=== PATIENT | male | born 1935 ===

== ENCOUNTER 2018-01-20 09:45 | Inpatient (IN) | payer BC, MEDICARE ==
[2018-01-20] MEDS ORDERED: Sodium Chloride 0.9% 1,000 ML IV STA (10:37)
[2018-01-20 11:07] LABS: BASO # 0.1 K/uL (0.0-0.2); BASO % 0.8 % (0.0-2.0); EOS # 0.4 K/uL (0.0-0.7); EOS % 5.1 % (0.0-4.0); HEMOGLOBIN 14.7 g/dL (12.0-18.0); LYMPH # 1.9 K/uL (1.0-4.3); LYMPH % 22.6 % (20.0-40.0); MEAN CELL VOLUME 96.9 fl (80.0-94.0); MEAN CORPUSCULAR HGB CONC 34.1 g/dL (33.0-37.0); MONO # 0.6 K/uL (0.0-0.8); MONO % 7.4 % (0.0-10.0); NEUT # 5.3 K/uL (1.8-7.0); NEUT % 64.1 % (50.0-75.0); NRBC % 0.1 % (0.0-0.0); RBC 4.46 Mil/uL (4.40-5.90); WHITE BLOOD COUNT 8.3 K/uL (4.8-10.8)
--- NOTE | 2018-01-20 11:09 | ED PDOC ---
Syncope/Near Syncope/Dizziness Time Seen by Provider: 01/20/18 10:08 Chief Complaint (Nursing): Dizziness/Lightheaded History Per: Patient (This is 82 yo male is here because of dizziness that has been ongoing for the past 2 years. He is also here because of abdominal pain for 2 months. He has been coughing a little. He says that Dr. Sullivan told him to come to the ER if he is not feeling well. He is no vomiting. there is no h/o fever or diarrhea. he is no short of breath.), Family History/Exam Limitations: no limitations Past Medical History Reviewed: Historical Data Vital Signs: Last Vital Signs Temp 98.4 F 01/20/18 09:57 Pulse 98 H 01/20/18 09:57 Resp 20 01/20/18 09:57 BP 126/54 L 01/20/18 09:57 Pulse Ox 96 01/20/18 09:57 - Medical History PMH: Diabetes, HTN - Surgical History Other surgeries: vascular surgery of the right LE - Family History Family History: States: No Known Family Hx - Living Arrangements Living Arrangements: With Family - Social History Current smoker - smoking cessation education provided: Yes Alcohol: Occasional Drugs: Denies - Home Medications Home Medications: Ambulatory Orders Medication Instructions Recorded Cilostazol [Pletal] 100 mg PO DAILY 01/20/18 Glimepiride [Amaryl] 4 mg PO BID 01/20/18 Meclizine HCl [Dramamine Less 25 mg PO DAILY 01/20/18 Drowsy] Pentoxifylline 400 mg PO DAILY 01/20/18 SITagliptin [Januvia] 50 mg PO DAILY 01/20/18 hydroCHLOROthiazide [Hydrodiuril] 25 mg PO DAILY 01/20/18 - Allergies Allergies/Adverse Reactions: Allergies Allergy/AdvReac Type Severity Reaction Status Date / Time No Known Allergies Allergy Verified 01/20/18 10:19 Review of Systems ROS Statement: Except As Marked, All Systems Reviewed And Found Negative Respiratory: Positive for: Cough Gastrointestinal: Positive for: Abdominal Pain. Negative for: Nausea, Vomiting , Diarrhea, Constipation Genitourinary Male: Negative for: Dysuria Physical Exam - Reviewed Nursing Documentation Reviewed: Yes Vital Signs Reviewed: Yes - Physical Exam Appears: Positive for: Well, Non-toxic, No Acute Distress Head Exam: Positive for: ATRAUMATIC, NORMAL INSPECTION, NORMOCEPHALIC Skin: Positive for: Normal Color, Warm, DRY Eye Exam: Positive for: EOMI, Normal appearance, PERRL ENT: Positive for: Normal ENT Inspection Neck: Positive for: Normal, Painless ROM Cardiovascular/Chest: Positive for: Regular Rate, Rhythm Respiratory: Positive for: CNT, Normal Breath Sounds Gastrointestinal/Abdominal: Positive for: Normal Exam, Soft Back: Positive for: Normal Inspection Extremity: Positive for: Normal ROM Neurologic/Psych: Positive for: Alert, Oriented - Laboratory Results Result Diagrams: 01/20/18 11:01 01/20/18 11:01 - ECG O2 Sat by Pulse Oximetry: 96 Medical Decision Making Medical Decision Making: case d/w Dr. Sullivan. US findings reviewed in detail along with his blood work. he is concerned about aneurysm as one of causes of abdominal pain. Will admit for abdominal pain and order CT scan and consultation with specialist. Disposition - Clinical Impression Clinical Impression: Dizziness, Abdominal pain, AAA (abdominal aortic aneurysm) - Patient ED Disposition Is Patient to be Admitted: Yes - Disposition Disposition: Transfer of Care Disposition Time: 12:30 Condition: FAIR Forms: [facility] (Slovak) - Pt Status Changed To: Hospital Disposition Of: Observation - POA Present On Arrival: None
[2018-01-20 11:17] LABS: ALB/GLOB RATIO 1.2 (1.0-2.1); ALBUMIN 3.9 g/dL (3.5-5.0); ALT/SGPT 28 U/L (21-72); AST/SGOT 18 U/L (17-59); BLOOD UREA NITROGEN 25 mg/dl (9-20); CALCIUM 9.1 mg/dL (8.4-10.2); GFR AFRICAN-AMERICAN > 60; GFR NON-AFRICAN AMERICAN 53; LIPASE 38 U/L (23-300)
[2018-01-20 12:02] LABS: URINE BILIRUBIN NEGATIVE (NEGATIVE); URINE CLARITY Clear (Clear); URINE COLOR LIGHT YELLOW (YELLOW); URINE GLUCOSE (UA) NEGATIVE (Normal)
[2018-01-20 12:03] LABS: URINE BLOOD TRACE (NEGATIVE); URINE LEUKOCYTE ESTERASE NEGATIVE Leu/uL (Negative); URINE PROTEIN 30 mg/dL (NEGATIVE); URINE UROBILINOGEN 0.2 mg/dL (0.2-1.0)
[2018-01-20 12:04] LABS: SQUAMOUS EPITHIAL 4 /hpf (0-5); URINE BACTERIA RARE (<OCC)
--- NOTE | 2018-01-20 12:17 | US ---
HISTORY: abdominal pain x 2 months, h/o aneurysm on CT COMPARISON: Correlations made to CT scan of the abdomen pelvis dated 03/08/2012. TECHNIQUE: Sonographic evaluation of the abdomen. FINDINGS: LIVER: Measures 15.1 cm. Normal echogenicity of the liver parenchyma. No mass. No intrahepatic bile duct dilatation. GALLBLADDER: Unremarkable. No gallstones. COMMON BILE DUCT: Measures 6 mm. No stones. No dilatation. PANCREAS: Unremarkable as visualized. No mass. No ductal dilatation. RIGHT KIDNEY: Measures 11.5 x 5.7 x 5.4cm. Midpole cyst measuring 3.0 x 2.7 x 3.0 cm. Normal echogenicity. No calculus, mass, or hydronephrosis. LEFT KIDNEY: Measures 9.8 x 5.2 x 5.4cm. Normal echogenicity. No calculus, mass, or hydronephrosis. SPLEEN: Normal in size and contour. No mass. AORTA: Aneurysmal dilatation in the midportion measuring 4.4 cm in maximal dimension. Contains intramural thrombus. IVC: Unremarkable. OTHER FINDINGS: None. IMPRESSION: Redemonstration of infrarenal abdominal aortic aneurysm now measuring up to 4.4 cm in maximal dimension. Intramural thrombus is noted along the right aspect of the aorta.
[2018-01-20] MEDS ORDERED: Iohexol 240 (50 ml) PO ONE (12:47)
--- NOTE | 2018-01-20 13:41 | RAD ---
HISTORY: long smoking hx, cough COMPARISON: Chest radiograph dated 09/07/2013. TECHNIQUE: Chest PA and lateral FINDINGS: LUNGS: Bibasilar fibrotic changes. No focal consolidation. PLEURA: No significant pleural effusion identified. No pneumothorax apparent. CARDIOVASCULAR: Atherosclerotic aortic calcifications. Cardiomediastinal still within normal limits. OSSEOUS STRUCTURES: Unchanged. VISUALIZED UPPER ABDOMEN: Normal. OTHER FINDINGS: None. IMPRESSION: Bibasilar fibrotic changes. No focal consolidation or pleural effusion.
--- NOTE | 2018-01-20 13:42 | RAD ---
HISTORY: abd pain x 2 months COMPARISON: Abdominal radiograph dated 05/07/2013. FINDINGS: BOWEL: Prominent amount of retained colonic stool. No obstruction. No free air. BONES: Degenerative changes. OTHER FINDINGS: Inferior vena cava filter redemonstrated. IMPRESSION: Prominent amount of retained colonic stool.
[2018-01-20] MEDS ORDERED: Iohexol 240 (50 ml) ONE (14:29)
[2018-01-20] MEDS ORDERED: Iohexol 300 100 ML IJ ONE (16:33)
[2018-01-20] MEDS ORDERED: Sodium Chloride 0.9% 100 ML ONE (16:33)
[2018-01-20] MEDS ORDERED: GlipiZIDE 10 mg SR Tab PO SCH (17:00)
--- NOTE | 2018-01-20 17:33 | CT ---
PROCEDURE: CT Chest, Abdomen and Pelvis with intravenous contrast HISTORY: Abdominal pain, h/o aneurysm confirmed by US COMPARISON: January 20, 2018. Abdominal aortic ultrasound documenting aneurysmal dilatation of the infrarenal aorta 4.4 cm. 03/08/2012 CT abdomen and pelvis. Aneurysmal dilatation of the infrarenal abdominal aorta was identified on the prior CT scan with orthogonal measurements 3.8 x 4.1 cm TECHNIQUE: IV dose administered: 90 cc Omnipaque 300 Radiation dose: Total exam DLP = 831.56 mGy-cm. This CT exam was performed using one or more of the following dose reduction techniques: Automated exposure control, adjustment of the mA and/or kV according to patient size, and/or use of iterative reconstruction technique. FINDINGS: CT CHEST WITH CONTRAST: LUNGS: Interstitial lung disease. Hyperinflation/ manifestations of COPD. Honeycombing pattern identified bilaterally. No suspicious pulmonary nodules or masses identified. No discrete infiltrates. MEDIASTINUM: Maximum diameter of ascending aorta 3.2 cm. Maximum diameter descending aorta 2.7 cm with thrombus formation. No evidence of aneurysm or dissection. LYMPH NODES: Unremarkable. PLEURA: Unremarkable. No pneumothorax. No pleural fluid. BONES: Multilevel degenerative changes primarily disc space narrowing and non marginal hyperostotic bone formation. OTHER FINDINGS: Small hiatal hernia. Moderate thickening of the distal esophagus suggests the possibility of esophagitis. Similar findings identified on the prior CT 03/08/[address] ABDOMEN AND PELVIS: LIVER: Unremarkable. No gross lesion or ductal dilatation. GALLBLADDER AND BILE DUCTS: Unremarkable. PANCREAS: Unremarkable. No gross lesion or ductal dilatation. SPLEEN: Unremarkable. ADRENALS: Unremarkable. No mass. KIDNEYS AND URETERS: Unremarkable. No hydronephrosis. No solid mass. Incidental finding(s): Simple cysts mid lower pole region right kidney 2.8 cm VASCULATURE: Aneurysmal dilatation of the infrarenal abdominal aorta. Maximum dimension 4.8 x 4.7 cm. Luminal diameter 2.8 x 2 cm. The abdominal aorta tapers to 1.8 cm at the bifurcation. The proximal iliac arteries measure 1.8 cm bilaterally. 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 IVC filter identified. BOWEL: Diverticulosis without an acute inflammatory component or other associated pathologic process. APPENDIX: Normal appendix. PERITONEUM: Unremarkable. No free fluid. No free air. LYMPH NODES: Unremarkable. No enlarged lymph nodes. BLADDER: Unremarkable. . REPRODUCTIVE: Unremarkable. BONES: No acute fracture. OTHER FINDINGS: None. IMPRESSION: Infrarenal abdominal aortic aneurysm measures 4.7 x 4.8 cm. Considerable thrombus identified. At a comparable level on the prior study from 03/08/2012 the infrarenal abdominal aorta measured 3.8 x 4.1 cm. Several caudal length of the aneurysmal component of the aorta 5.2 cm Additional benign and/or incidental findings described above.
[2018-01-20] MEDS: Sodium Chloride 0.9% 1,000 ML IV SCH (17:52)
--- NOTE | 2018-01-20 18:41 | CARD ---
APPROVED REPORT EKG Measurement Heart [id number] <Conclusion> Normal sinus rhythm Left axis deviation Abnormal ECG
[2018-01-21] MEDS: Sodium Chloride 0.9% 1,000 ML IV SCH ×2 (04:00→14:36)
[2018-01-21 06:28] LABS: BASO # 0.1 K/uL (0.0-0.2); BASO % 0.9 % (0.0-2.0); EOS # 0.4 K/uL (0.0-0.7); EOS % 6.7 % (0.0-4.0); HEMOGLOBIN 13.9 g/dL (12.0-18.0); LYMPH % 30.4 % (20.0-40.0); MEAN CORPUSCULAR HEMOGLOBIN 32.4 pg (27.0-31.0); MEAN CORPUSCULAR HGB CONC 33.4 g/dL (33.0-37.0); MEAN PLATELET VOLUME 8.6 fl (7.2-11.7); MONO # 0.5 K/uL (0.0-0.8); MONO % 8.5 % (0.0-10.0); NEUT # 3.4 K/uL (1.8-7.0); NEUT % 53.5 % (50.0-75.0); NRBC % 0.2 % (0.0-0.0); RBC 4.3 Mil/uL (4.40-5.90); RED CELL DISTRIBUTION WIDTH 13.6 % (11.5-14.5); WHITE BLOOD COUNT 6.4 K/uL (4.8-10.8)
[2018-01-21 06:38] LABS: ALB/GLOB RATIO 1.3 (1.0-2.1); ALBUMIN 3.5 g/dL (3.5-5.0); ALT/SGPT 26 U/L (21-72); AST/SGOT 14 U/L (17-59); BLOOD UREA NITROGEN 25 mg/dl (9-20); CALCIUM 8.8 mg/dL (8.4-10.2); GFR AFRICAN-AMERICAN > 60; GFR NON-AFRICAN AMERICAN 53; HDL CHOLESTEROL 33 MG/DL (30-70)
[2018-01-21 06:57] LABS: LDL CHOLESTEROL 99 mg/dL (0-129)
[2018-01-21] MEDS: Cilostazol 100 mg Tab UD PO SCH (08:57)
--- NOTE | 2018-01-21 10:43 | VASCLAB ---
STUDY DESCRIPTION: HISTORY: R/O PVD PRIORS: None. TECHNIQUE: Pulse volume recording waveforms and segmental pressures of bilateral lower extremities at multiple levels were obtained. Ankle Brachial Indices (ABIs) were calculated. Report prepared by Diamond Ugalde RDMS,ROSS,ESTEFANIA BARNETT RIGHT LOWER EXTREMITY: * Brachial artery: Pressure - 124 mmHg. * High thigh: Pressure - 137 mmHg: Ratio - 1.10: PVR waveform - Pulsatile * Low thigh: Pressure - mmHg: Ratio - PVR waveform: Pulsatile * Calf: Pressure - 115 mmHg: Ratio - 0.93 PVR waveform: Reduced * Posterior tibial Artery: Pressure - mmHg: Ratio - PVR waveform: None * Dorsalis pedis Artery: Pressure - 115 mmHg: Ratio - 0.93 PVR waveform: Reduced * Great toe: Pressure - 44 mmHg: Ratio - 0.35 PVR waveform: Reduced Ankle brachial index (JOSÉ MIGUEL): LEFT LOWER EXTREMITY: * Brachial artery: Pressure - mmHg. * High thigh: Pressure - 122 mmHg: Ratio - 0.98: PVR waveform - Pulsatile * Low thigh: Pressure - mmHg: Ratio - PVR waveform: Pulsatile * Calf: Pressure - 131 mmHg: Ratio - 1.06 PVR waveform: Pulsatile * Posterior tibial Artery: Pressure - 124 mmHg: Ratio - 1.0 PVR waveform: Pulsatile * Dorsalis pedis Artery: Pressure - 150 mmHg: Ratio - 1.21 PVR waveform: Pulsatile * Great toe: Pressure - 75 mmHg: Ratio - 0.60 PVR waveform: Pulsatile Ankle brachial index (JOSÉ MIGUEL): OTHER FINDINGS: IMPRESSION: Right: Normal ankle-brachial index. Abnormal waveform at the level of the toe may signify distal vessel disease. Left: Normal ankle-brachial index. Abnormal waveform the level of the toe may signify distal vessel disease.
--- NOTE | 2018-01-21 14:32 | CP.PCM.HP ---
History of Present Illness - History of Present Illness History of Present Illness: CC: Abdominal pain. 82 y/o M, Multiple chronic medical condition, including Hx of DVT, COPD, Right L /E vascular surgery, DMII. Pt came to ER [facility] [place] to be evaluated for abdominal pain, onset 2 month LACER AND TIER, with no relief. Pt c/o of moderate lower abdominal pain for 2 months, gradually increased from moderate to severe, more intensive at HS, awaking Pt from the last 2 weeks LACER AND TIER, no associated to n/v/d, but associated to mid back pain and chronic claudication of the RLE walking 1 to 2 blocks. Worsening symptoms: C/o of chronic Dizziness, lightheaded, non productive cough at times. Pt is heavy smoker. Aggravated factor: Walking. Pt denied: Fever, chills, n/v/d, urinary symptoms, CP, palpitation, syncope, SOB, sick contact, recent travel out of [facility]. CXR showed: Bibasilar fibrotic changes, no consolidations, no pleural effusion. EKG: Normal sinus rhythm. LAD Chest/ Abdpmen/Pelvis CT: Infrarenal abdominal aorta aneurysm measures 4.7 x 4.8 cm. Considerable thrombus identified at a comparable level on the prior study from 03/08/12. The infrarenal abdominal aorta measured 3.8 x 4.1 cm. Several caudal length of the aneurysmal component of the aorta 5.2 cm. Abdominal U-S: Infrarenal abdominal aneurysm in maximal dimension. Intramural thrombus is noted along the R aspect of the aorta. Arterial Doppler lower extremities: Distal vascular disease R-L lower extremities. Present on Admission - Present on Admission Any Indicators Present on Admission: Yes History of DVT/PE: Yes Review of Systems - Constitutional Constitutional: Other (negative) - EENT Eyes: Requires Corrective Lenses Ears: Other (negative) Nose/Mouth/Throat: Other (negative) - Cardiovascular Cardiovascular: Other (negative) - Respiratory Respiratory: Cough - Gastrointestinal Gastrointestinal: Abdominal Pain - Genitourinary Genitourinary: Other (negative) - Musculoskeletal Musculoskeletal: Arthralgias, Back Pain Additional comments: numbness R foot , minimal L foot - Integumentary Integumentary: Other (negative) - Neurological Neurological: Dizziness - Psychiatric Psychiatric: Anxiety - Endocrine Endocrine: Other (negative) - Hematologic/Lymphatic Hematologic: Other (negative) Past Patient History - Past Medical History & Family History Pertinent Family History: Unknown - Past Social History Smoking Status: Heavy Smoker > 10 Cigarettes Daily Alcohol: Social Drugs: Denies Home Situation {Lives}: With Family - CARDIAC Hx Cardiac Disorders: Yes Hx Hypertension: Yes - PULMONARY Hx Respiratory Disorders: Yes - NEUROLOGICAL Hx Neurological Disorder: No - HEENT Hx HEENT Problems: No - RENAL Hx Chronic Kidney Disease: No - ENDOCRINE/METABOLIC Hx Endocrine Disorders: Yes Hx Diabetes Mellitus Type 2: Yes - HEMATOLOGICAL/ONCOLOGICAL Hx Blood Disorders: No - INTEGUMENTARY Hx Dermatological Problems: No - MUSCULOSKELETAL/RHEUMATOLOGICAL Hx Musculoskeletal Disorders: Yes Hx Arthritis: Yes Hx Back Pain: Yes Hx Falls: No - GASTROINTESTINAL Hx Gastrointestinal Disorders: No - GENITOURINARY/GYNECOLOGICAL Hx Genitourinary Disorders: No - PSYCHIATRIC Hx Psychophysiologic Disorder: Yes Hx Anxiety: Yes Hx Substance Use: No - SURGICAL HISTORY Hx Surgeries: Yes Other/Comment: RLE vascular surgery Fame-Pop bypass. IVC filter. Skin Nose Ca - ANESTHESIA Hx Anesthesia: Yes Hx Anesthesia Reactions: No Meds Allergies/Adverse Reactions: Allergies Allergy/AdvReac Type Severity Reaction Status Date / Time No Known Allergies Allergy Verified 01/20/18 10:19 Physical Exam - Constitutional Appears: No Acute Distress - Head Exam Head Exam: NORMAL INSPECTION - Eye Exam Eye Exam: PERRL - ENT Exam ENT Exam: Normal Exam - Neck Exam Neck exam: Positive for: Normal Inspection - Respiratory Exam Respiratory Exam: Decreased Breath Sounds (at bases) - Cardiovascular Exam Cardiovascular Exam: REGULAR RHYTHM - GI/Abdominal Exam GI & Abdominal Exam: Normal Bowel Sounds, Tenderness (R-LLQ) - Extremities Exam Extremities exam: Positive for: normal inspection - Back Exam Back exam: NORMAL INSPECTION - Neurological Exam Neurological exam: Alert, Oriented x3 Additional comments: No focal motor/sensory deficit. - Psychiatric Exam Psychiatric exam: Anxious - Skin Skin Exam: Warm Results - Vital Signs Recent Vital Signs: Last Vital Signs Temp 97.5 F L 01/21/18 08:02 Pulse 59 L 01/21/18 08:02 Resp 20 01/21/18 08:02 BP 124/71 01/21/18 08:02 Pulse Ox 98 01/21/18 08:02 reviewed Gail - Labs Result Diagrams: 01/21/18 05:10 01/21/18 05:10 Labs: Laboratory Results - last 24 hr 0501/20/18 01/20/18 22:45 22:47 23:53 WBC RBC Hgb Hct MCV MCH MCHC RDW Plt Count MPV Neut % (Auto) Lymph % (Auto) Sawyer % (Auto) Eos % (Auto) Baso % (Auto) Neut # (Auto) Lymph # (Auto) Sawyer # (Auto) Eos # (Auto) Baso # (Auto) Sodium Potassium Chloride Carbon Dioxide Anion Gap BUN Creatinine Est GFR ( Amer) Est GFR (Non-Af Amer) POC Glucose (mg/dL) 51 L 50 L 91 Random Glucose Calcium Total Bilirubin AST ALT Alkaline Phosphatase Total Protein Albumin Globulin Albumin/Globulin Ratio Triglycerides Cholesterol LDL Cholesterol Direct HDL Cholesterol Thyroxine (T4) TSH 3rd Generation 01/21/18 01/21/18 01/21/18 05:10 05:10 05:52 WBC 6.4 RBC 4.30 L Hgb 13.9 Hct 41.7 MCV 97.0 H MCH 32.4 H MCHC 33.4 RDW 13.6 Plt Count 155 MPV 8.6 Neut % (Auto) 53.5 Lymph % (Auto) 30.4 Sawyer % (Auto) 8.5 Eos % (Auto) 6.7 H Baso % (Auto) 0.9 Neut # (Auto) 3.4 Lymph # (Auto) 2.0 Sawyer # (Auto) 0.5 Eos # (Auto) 0.4 Baso # (Auto) 0.1 Sodium 141 Potassium 4.3 Chloride 104 Carbon Dioxide 29 Anion Gap 12 BUN 25 H Creatinine 1.3 Est GFR ( Amer) > 60 Est GFR (Non-Af Amer) 53 POC Glucose (mg/dL) 117 H Random Glucose 112 H Calcium 8.8 Total Bilirubin 0.5 AST 14 L D ALT 26 Alkaline Phosphatase 55 Total Protein 6.2 L Albumin 3.5 Globulin 2.8 Albumin/Globulin Ratio 1.3 Triglycerides 145 Cholesterol 165 LDL Cholesterol Direct 99 HDL Cholesterol 33 Thyroxine (T4) 7.60 TSH 3rd Generation 1.12 01/21/18 11:29 WBC RBC Hgb Hct MCV MCH MCHC RDW Plt Count MPV Neut % (Auto) Lymph % (Auto) Sawyer % (Auto) Eos % (Auto) Baso % (Auto) Neut # (Auto) Lymph # (Auto) Sawyer # (Auto) Eos # (Auto) Baso # (Auto) Sodium Potassium Chloride Carbon Dioxide Anion Gap BUN Creatinine Est GFR ( Amer) Est GFR (Non-Af Amer) POC Glucose (mg/dL) 94 Random Glucose Calcium Total Bilirubin AST ALT Alkaline Phosphatase Total Protein Albumin Globulin Albumin/Globulin Ratio Triglycerides Cholesterol LDL Cholesterol Direct HDL Cholesterol Thyroxine (T4) TSH 3rd Generation reviewed J.P. - EKG Data EKG comments: reviewed J.P. - Imaging and Cardiology Chest x-ray Status: Report reviewed by me (Gail) US - abdomen Status: Report reviewed by me (GilbertoPEnrique) CT scan - chest Status: Report reviewed by me (GilbertoP.) CT scan - abdomen Status: Report reviewed by me (Gail) CT scan - pelvis Status: Report reviewed by me (Gail) Assessment & Plan (1) Abdominal pain Status: Acute Priority: High (2) AAA (abdominal aortic aneurysm) Status: Chronic Priority: High (3) Dizziness Status: Chronic Priority: High (4) PVD (peripheral vascular disease) Status: Chronic Priority: High (5) COPD (chronic obstructive pulmonary disease) Status: Chronic Priority: Medium (6) DMII (diabetes mellitus, type 2) Status: Chronic Priority: Medium (7) HTN (hypertension) Status: Chronic Priority: Medium (8) Anxiety Status: Chronic Priority: Medium - Assessment and Plan (Free Text) Plan: F/U Carotid U-S, MRI Brain, Hgb A1C, Renal U-S, U C-S, continue Meclizine, Pletal, Pentoxil, Tylenol 650mg, Hydrodiuril and rest of Tx. Vascular and Neurology consult. - Date & Time Date: 01/21/18 Time: 13:00
--- NOTE | 2018-01-21 17:01 | CP.PCM.CON ---
History of Present Illness - History of Present Illness History of Present Illness: SURGERY CONSULT FOR DR. MCCORD 82M presents to hospital for dizziness and abdominal pain. Dizziness has been going on for 2 years. Abdominal pain has been going on for 2 months. He states the pain is in the lower abdomen bilateral. He sates he currently does not have the pain. He denies nausea, vomiting, fevers, chills, he has been tolerating diet and having normal bowel movements. He has has a history of AAA which was 3.8*4.1 in 2011. Vascular consult for AAA now measuring 4.7*4.8cm. PMH: DM, HTN, COPD, PVD, AAA PSH: Inguinal hernia?, right LE vascular bypass, IVC filter placement Social: admits to 8 cigars a day, denies alcohol use, denies illicit drugs Allergies: NKDA Past Patient History - Past Social History Smoking Status: Heavy Smoker > 10 Cigarettes Daily - CARDIAC Hx Cardiac Disorders: Yes Hx Hypertension: Yes - PULMONARY Hx Respiratory Disorders: No - NEUROLOGICAL Hx Neurological Disorder: No - HEENT Hx HEENT Problems: No - RENAL Hx Chronic Kidney Disease: No - ENDOCRINE/METABOLIC Hx Endocrine Disorders: Yes Hx Diabetes Insipidus: Yes - HEMATOLOGICAL/ONCOLOGICAL Hx Blood Disorders: No - INTEGUMENTARY Hx Dermatological Problems: No - MUSCULOSKELETAL/RHEUMATOLOGICAL Hx Musculoskeletal Disorders: No Hx Falls: No - GASTROINTESTINAL Hx Gastrointestinal Disorders: No - GENITOURINARY/GYNECOLOGICAL Hx Genitourinary Disorders: No - PSYCHIATRIC Hx Psychophysiologic Disorder: No Hx Substance Use: No - SURGICAL HISTORY Hx Surgeries: Yes Other/Comment: RLE vascular surgery - ANESTHESIA Hx Anesthesia: Yes Hx Anesthesia Reactions: No Meds Allergies/Adverse Reactions: Allergies Allergy/AdvReac Type Severity Reaction Status Date / Time No Known Allergies Allergy Verified 01/20/18 10:19 - Medications Medications: Current Medications Acetaminophen (Tylenol 325mg Tab) 650 mg PO Q4 PRN PRN Reason: Pain, Mild (1-3) Alprazolam (Xanax) 0.5 mg PO HS PRN PRN Reason: Sleep Cilostazol (Pletal) 100 mg PO DAILY [facility] Last Admin: 01/21/18 08:57 Dose: 100 mg Hydrochlorothiazide (Hydrodiuril) 25 mg PO DAILY [facility] Last Admin: 01/21/18 08:57 Dose: 25 mg Sodium Chloride (Sodium Chloride 0.9%) 1,000 mls @ 100 mls/hr IV .Q10H [facility] Stop: 01/21/18 17:38 Last Admin: 01/21/18 14:36 Dose: Not Given Meclizine HCl (Antivert) 25 mg PO BID [facility] Pentoxifylline (Pentoxil) 400 mg PO DAILY [facility] Last Admin: 01/21/18 08:57 Dose: 400 mg Physical Exam - Constitutional Appears: Well, Non-toxic, No Acute Distress - Head Exam Head Exam: ATRAUMATIC - Eye Exam Eye Exam: EOMI, PERRL - ENT Exam ENT Exam: Mucous Membranes Moist - Respiratory Exam Respiratory Exam: Clear to Auscultation Bilateral, NORMAL BREATHING PATTERN - Cardiovascular Exam Cardiovascular Exam: REGULAR RHYTHM, +S1, +S2 - GI/Abdominal Exam GI & Abdominal Exam: Soft, Tenderness (lower abdomen bilaterally). absent: Distended, Firm, Guarding, Rebound, Rigid - Extremities Exam Extremities exam: Positive for: pedal pulses present. Negative for: pedal edema , tenderness Additional comments: ambulates well, no discoloration - Neurological Exam Neurological exam: Alert, Oriented x3 - Psychiatric Exam Psychiatric exam: Normal Affect, Normal Mood - Skin Skin Exam: Dry, Intact, Normal Color, Warm Results - Vital Signs Recent Vital Signs: Last Vital Signs Temp 97.5 F L 01/21/18 08:02 Pulse 59 L 01/21/18 08:02 Resp 20 01/21/18 08:02 BP 124/71 01/21/18 08:02 Pulse Ox 98 01/21/18 08:02 - Labs Result Diagrams: 01/21/18 05:10 01/21/18 05:10 Labs: Laboratory Results - last 24 hr 01/20/18 01/20/18 01/20/18 22:45 22:47 23:53 WBC RBC Hgb Hct MCV MCH MCHC RDW Plt Count MPV Neut % (Auto) Lymph % (Auto) Ransom % (Auto) Eos % (Auto) Baso % (Auto) Neut # (Auto) Lymph # (Auto) Ransom # (Auto) Eos # (Auto) Baso # (Auto) Sodium Potassium Chloride Carbon Dioxide Anion Gap BUN Creatinine Est GFR ( Amer) Est GFR (Non-Af Amer) POC Glucose (mg/dL) 51 L 50 L 91 Random Glucose Calcium Total Bilirubin AST ALT Alkaline Phosphatase Total Protein Albumin Globulin Albumin/Globulin Ratio Triglycerides Cholesterol LDL Cholesterol Direct HDL Cholesterol Thyroxine (T4) TSH 3rd Generation 01/21/18 01/21/18 01/21/18 05:10 05:10 05:52 WBC 6.4 RBC 4.30 L Hgb 13.9 Hct 41.7 MCV 97.0 H MCH 32.4 H MCHC 33.4 RDW 13.6 Plt Count 155 MPV 8.6 Neut % (Auto) 53.5 Lymph % (Auto) 30.4 Ransom % (Auto) 8.5 Eos % (Auto) 6.7 H Baso % (Auto) 0.9 Neut # (Auto) 3.4 Lymph # (Auto) 2.0 Ransom # (Auto) 0.5 Eos # (Auto) 0.4 Baso # (Auto) 0.1 Sodium 141 Potassium 4.3 Chloride 104 Carbon Dioxide 29 Anion Gap 12 BUN 25 H Creatinine 1.3 Est GFR ( Amer) > 60 Est GFR (Non-Af Amer) 53 POC Glucose (mg/dL) 117 H Random Glucose 112 H Calcium 8.8 Total Bilirubin 0.5 AST 14 L D ALT 26 Alkaline Phosphatase 55 Total Protein 6.2 L Albumin 3.5 Globulin 2.8 Albumin/Globulin Ratio 1.3 Triglycerides 145 Cholesterol 165 LDL Cholesterol Direct 99 HDL Cholesterol 33 Thyroxine (T4) 7.60 TSH 3rd Generation 1.12 01/21/18 01/21/18 11:29 16:37 WBC RBC Hgb Hct MCV MCH MCHC RDW Plt Count MPV Neut % (Auto) Lymph % (Auto) Ransom % (Auto) Eos % (Auto) Baso % (Auto) Neut # (Auto) Lymph # (Auto) Ransom # (Auto) Eos # (Auto) Baso # (Auto) Sodium Potassium Chloride Carbon Dioxide Anion Gap BUN Creatinine Est GFR ( Amer) Est GFR (Non-Af Amer) POC Glucose (mg/dL) 94 117 H Random Glucose Calcium Total Bilirubin AST ALT Alkaline Phosphatase Total Protein Albumin Globulin Albumin/Globulin Ratio Triglycerides Cholesterol LDL Cholesterol Direct HDL Cholesterol Thyroxine (T4) TSH 3rd Generation Assessment & Plan - Assessment and Plan (Free Text) Assessment: 82M with abdominal aortic aneurysm Plan: - serial abdominal exams - Will plan for [facility] Will discuss with Dr. Herrera Silveira, PGY2
--- NOTE | 2018-01-21 19:12 | CP.PCM.CON ---
History of Present Illness - History of Present Illness History of Present Illness: 82 yr old male who is here for dizziness for 2 years, worsening as of late, with accompanying abdominal pain for 2 months. He was asked by to come to hospital. There is no complaint of diarrhea, headache, visual symptoms. Today, he states that the dizziness makes him fall at times, wtih the room spinning,. denies otalgia, hearing loss, head trauma. Does complain of right leg pain that is orginating from site of old foot surgery accompanied with numbness and tingling. PMH/PSH; DM, Htn, Prior right leg surgery FH.SH: no tobacco, no etoh. Allnkda on exam: Normal neuro exam, except for difficulty walking tandem. He is also weak on foot eversion, with decreased ft, pin in lower limbs bilaterally. Past Patient History - Past Social History Smoking Status: Heavy Smoker > 10 Cigarettes Daily - CARDIAC Hx Cardiac Disorders: Yes Hx Hypertension: Yes - PULMONARY Hx Respiratory Disorders: No - NEUROLOGICAL Hx Neurological Disorder: No - HEENT Hx HEENT Problems: No - RENAL Hx Chronic Kidney Disease: No - ENDOCRINE/METABOLIC Hx Endocrine Disorders: Yes Hx Diabetes Insipidus: Yes - HEMATOLOGICAL/ONCOLOGICAL Hx Blood Disorders: No - INTEGUMENTARY Hx Dermatological Problems: No - MUSCULOSKELETAL/RHEUMATOLOGICAL Hx Musculoskeletal Disorders: No Hx Falls: No - GASTROINTESTINAL Hx Gastrointestinal Disorders: No - GENITOURINARY/GYNECOLOGICAL Hx Genitourinary Disorders: No - PSYCHIATRIC Hx Psychophysiologic Disorder: No Hx Substance Use: No - SURGICAL HISTORY Hx Surgeries: Yes Other/Comment: RLE vascular surgery - ANESTHESIA Hx Anesthesia: Yes Hx Anesthesia Reactions: No Meds Allergies/Adverse Reactions: Allergies Allergy/AdvReac Type Severity Reaction Status Date / Time No Known Allergies Allergy Verified 01/20/18 10:19 - Medications Medications: Current Medications Acetaminophen (Tylenol 325mg Tab) 650 mg PO Q4 PRN PRN Reason: Pain, Mild (1-3) Alprazolam (Xanax) 0.5 mg PO HS PRN PRN Reason: Sleep Cilostazol (Pletal) 100 mg PO DAILY [facility] Last Admin: 01/21/18 08:57 Dose: 100 mg Hydrochlorothiazide (Hydrodiuril) 25 mg PO DAILY [facility] Last Admin: 01/21/18 08:57 Dose: 25 mg Meclizine HCl (Antivert) 25 mg PO BID [facility] Last Admin: 01/21/18 17:14 Dose: 25 mg Pentoxifylline (Pentoxil) 400 mg PO DAILY [facility] Last Admin: 01/21/18 08:57 Dose: 400 mg Results - Vital Signs Recent Vital Signs: Last Vital Signs Temp 97.7 F 01/21/18 17:36 Pulse 69 01/21/18 17:36 Resp 20 01/21/18 17:36 BP 118/71 01/21/18 17:36 Pulse Ox 99 01/21/18 17:36 - Labs Result Diagrams: 01/21/18 05:10 01/21/18 05:10 Labs: Laboratory Results - last 24 hr 01/20/18 01/20/18 01/20/18 22:45 22:47 23:53 WBC RBC Hgb Hct MCV MCH MCHC RDW Plt Count MPV Neut % (Auto) Lymph % (Auto) [place] % (Auto) Eos % (Auto) Baso % (Auto) Neut # (Auto) Lymph # (Auto) [place] # (Auto) Eos # (Auto) Baso # (Auto) Sodium Potassium Chloride Carbon Dioxide Anion Gap BUN Creatinine Est GFR ( Amer) Est GFR (Non-Af Amer) POC Glucose (mg/dL) 51 L 50 L 91 Random Glucose Calcium Total Bilirubin AST ALT Alkaline Phosphatase Total Protein Albumin Globulin Albumin/Globulin Ratio Triglycerides Cholesterol LDL Cholesterol Direct HDL Cholesterol Thyroxine (T4) TSH 3rd Generation 01/21/18 01/21/18 01/21/18 05:10 05:10 05:52 WBC 6.4 RBC 4.30 L Hgb 13.9 Hct 41.7 MCV 97.0 H MCH 32.4 H MCHC 33.4 RDW 13.6 Plt Count 155 MPV 8.6 Neut % (Auto) 53.5 Lymph % (Auto) 30.4 [place] % (Auto) 8.5 Eos % (Auto) 6.7 H Baso % (Auto) 0.9 Neut # (Auto) 3.4 Lymph # (Auto) 2.0 [place] # (Auto) 0.5 Eos # (Auto) 0.4 Baso # (Auto) 0.1 Sodium 141 Potassium 4.3 Chloride 104 Carbon Dioxide 29 Anion Gap 12 BUN 25 H Creatinine 1.3 Est GFR ( Amer) > 60 Est GFR (Non-Af Amer) 53 POC Glucose (mg/dL) 117 H Random Glucose 112 H Calcium 8.8 Total Bilirubin 0.5 AST 14 L D ALT 26 Alkaline Phosphatase 55 Total Protein 6.2 L Albumin 3.5 Globulin 2.8 Albumin/Globulin Ratio 1.3 Triglycerides 145 Cholesterol 165 LDL Cholesterol Direct 99 HDL Cholesterol 33 Thyroxine (T4) 7.60 TSH 3rd Generation 1.12 01/21/18 01/21/18 11:29 16:37 WBC RBC Hgb Hct MCV MCH MCHC RDW Plt Count MPV Neut % (Auto) Lymph % (Auto) [place] % (Auto) Eos % (Auto) Baso % (Auto) Neut # (Auto) Lymph # (Auto) [place] # (Auto) Eos # (Auto) Baso # (Auto) Sodium Potassium Chloride Carbon Dioxide Anion Gap BUN Creatinine Est GFR ( Amer) Est GFR (Non-Af Amer) POC Glucose (mg/dL) 94 117 H Random Glucose Calcium Total Bilirubin AST ALT Alkaline Phosphatase Total Protein Albumin Globulin Albumin/Globulin Ratio Triglycerides Cholesterol LDL Cholesterol Direct HDL Cholesterol Thyroxine (T4) TSH 3rd Generation Assessment & Plan - Assessment and Plan (Free Text) Assessment: 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 He does not have signs of cerebellar disease, but we will order MRI Brain without didier. In addition, he also has some peripheral neuropathy and radiculopathy and will benefit from outpatient EMG. Plan: 1. MRi Jason without didier. 2. EMG outpatient, lower limb with Dr. Sam. Thank you
--- NOTE | 2018-01-21 19:47 | US ---
EXAM: US Duplex Bilateral Extracranial Arteries CLINICAL HISTORY: 82 years old, male; Signs and symptoms; Dizziness TECHNIQUE: Real-time duplex ultrasound scan of the extracranial arteries integrating B-mode two-dimensional vascular structure, Doppler spectral analysis and color flow Doppler imaging. COMPARISON: No relevant prior studies available. FINDINGS: Right (PSV/EDV) cm/sec CCA - 88.6/10.3 ICA prox - 85.8/19.5 ICA mid- 57.9/10.1 ICA dist - 58.9/12.2 ECA - 141.8/13.8 Vert - 27.1/7.8 antegrade ICA/CCA - 1.0 Left (PSV/EDV) cm/sec CCA - 101.3/10.8 ICA prox - 81.7/15.2 ICA mid- 45.7/12.4 ICA dist - 66.9/16 ECA - 184.3/26.2 Vert - 34.3/5.8 antegrade ICA/CCA - 0.8 Bilateral calcified plaque noted predominantly in region of carotid bulb. CAROTID STENOSIS REFERENCE USING SRU CRITERIA: Mild - <50% stenosis. ICA PSV is less than 125 cm/second and plaque or intimal thickening is visible. Moderate - 50-69% stenosis. ICA PSV is 125 to 230 cm/second and plaque is visible. Severe - 70-94% stenosis. ICA PSV is more than 230 cm/second and visible plaque with lumen narrowing is seen. Near occlusion - 95-99% stenosis. ICA PSV is variable and significant plaque with luminal narrowing is seen. Occluded - 100% stenosis. No flow identified. IMPRESSION: Carotid calcification with mild carotid stenosis. Details as above.
[2018-01-21] MEDS ORDERED: Bismuth Subsalicylate 262 mg/15 ml Sus (240 ml) PO PRN (20:44)
[2018-01-22] MEDS: Cilostazol 100 mg Tab UD PO SCH (08:37)
--- NOTE | 2018-01-22 08:56 | CP.PCM.PN ---
Subjective - Date & Time of Evaluation Date of Evaluation: 01/22/18 Time of Evaluation: 08:51 - Subjective Subjective: SURGERY NOTE FOR DR. MCCORD 82M seen and examined at bedside. No acute event overnight. Patient has no complaints about abdominal pain, nausea/vomiting. States dizziness is improving. Objective - Vital Signs/Intake and Output Vital Signs (last 24 hours): Temp Pulse Resp BP Pulse Ox 97.5 F L 70 20 96/53 L 97 01/22/18 08:18 01/22/18 08:18 01/22/18 08:18 01/22/18 08:18 01/22/18 08:18 - Medications Medications: Current Medications Acetaminophen (Tylenol 325mg Tab) 650 mg PO Q4 PRN PRN Reason: Pain, Mild (1-3) Alprazolam (Xanax) 0.5 mg PO HS PRN PRN Reason: Sleep Bismuth Subsalicylate (Pepto-Bismol) 524 mg PO Q6 PRN PRN Reason: Diarrhea Last Admin: 01/21/18 21:15 Dose: 524 mg Cilostazol (Pletal) 100 mg PO DAILY [facility] Last Admin: 01/22/18 08:37 Dose: 100 mg Hydrochlorothiazide (Hydrodiuril) 25 mg PO DAILY [facility] Last Admin: 01/22/18 08:37 Dose: 25 mg Meclizine HCl (Antivert) 25 mg PO BID [facility] Last Admin: 01/22/18 08:37 Dose: 25 mg Pentoxifylline (Pentoxil) 400 mg PO DAILY [facility] Last Admin: 01/22/18 08:37 Dose: 400 mg - Labs Labs: 01/21/18 05:10 01/21/18 05:10 - Constitutional Appears: Non-toxic, No Acute Distress - Respiratory Exam Respiratory Exam: Clear to Ausculation Bilateral, NORMAL BREATHING PATTERN - Cardiovascular Exam Cardiovascular Exam: REGULAR RHYTHM, +S1, +S2 - GI/Abdominal Exam GI & Abdominal Exam: Soft. absent: Distended, Firm, Guarding, Rigid, Tenderness , Rebound - Extremities Exam Extremities Exam: absent: Pedal Edema, Tenderness - Neurological Exam Neurological Exam: Alert, Awake Assessment and Plan - Assessment and Plan (Free Text) Assessment: 82M with AAA Plan: - further evaluation of anatomy - will reach out to company about grafts - plan for possible OR Further recs discuss with Dr. Herrera Silveira, PGY2
--- NOTE | 2018-01-22 15:04 | CP.PCM.PN ---
Subjective - Date & Time of Evaluation Date of Evaluation: 01/21/18 Time of Evaluation: 13:30 - Subjective Subjective: F/U Abdominal pain. dizziness , mild lower abdominal pain with movements , no diarrhea , dizziness improved Objective - Vital Signs/Intake and Output Vital Signs (last 24 hours): Temp Pulse Resp BP Pulse Ox 97.5 F L 70 20 96/53 L 97 01/22/18 08:18 01/22/18 08:18 01/22/18 08:18 01/22/18 08:18 01/22/18 08:18 - Medications Medications: Current Medications Acetaminophen (Tylenol 325mg Tab) 650 mg PO Q4 PRN PRN Reason: Pain, Mild (1-3) Alprazolam (Xanax) 0.5 mg PO HS PRN PRN Reason: Sleep Bismuth Subsalicylate (Pepto-Bismol) 524 mg PO Q6 PRN PRN Reason: Diarrhea Last Admin: 01/21/18 21:15 Dose: 524 mg Cilostazol (Pletal) 100 mg PO DAILY [facility] Last Admin: 01/22/18 08:37 Dose: 100 mg Hydrochlorothiazide (Hydrodiuril) 25 mg PO DAILY [facility] Last Admin: 01/22/18 08:37 Dose: 25 mg Meclizine HCl (Antivert) 25 mg PO BID [facility] Last Admin: 01/22/18 08:37 Dose: 25 mg Pentoxifylline (Pentoxil) 400 mg PO DAILY [facility] Last Admin: 01/22/18 08:37 Dose: 400 mg - Labs Labs: 01/21/18 05:10 01/21/18 05:10 - Constitutional Appears: No Acute Distress - Head Exam Head Exam: NORMAL INSPECTION - Eye Exam Eye Exam: PERRL - ENT Exam ENT Exam: Normal Exam - Neck Exam Neck Exam: Normal Inspection - Respiratory Exam Respiratory Exam: Decreased Breath Sounds (at bases) - Cardiovascular Exam Cardiovascular Exam: REGULAR RHYTHM - GI/Abdominal Exam GI & Abdominal Exam: Tenderness (R-L lower quadrants), Normal Bowel Sounds - Extremities Exam Additional comments: numbness sensation R foot - Back Exam Back Exam: NORMAL INSPECTION - Neurological Exam Neurological Exam: Alert, Oriented x3 Additional comments: No focal motor/sensory deficit. - Psychiatric Exam Psychiatric exam: Anxious - Skin Skin Exam: Warm Assessment and Plan (1) Abdominal pain Status: Acute (2) AAA (abdominal aortic aneurysm) Status: Chronic (3) Dizziness Status: Chronic (4) PVD (peripheral vascular disease) Status: Chronic (5) COPD (chronic obstructive pulmonary disease) Status: Chronic (6) DMII (diabetes mellitus, type 2) Status: Chronic (7) HTN (hypertension) Status: Chronic (8) Anxiety Status: Chronic - Assessment and Plan (Free Text) Plan: Vascular jd edwards consultant for AAA in contact with company for endograft measurements,, f/u Carotid US and Brain MRI , continue Meclizine , Lipitor , Pletal , Pentoxil and rest of treatment.
--- NOTE | 2018-01-23 07:27 | CP.PCM.PN ---
Subjective - Date & Time of Evaluation Date of Evaluation: 01/23/18 Time of Evaluation: 07:25 - Subjective Subjective: Surgery Pt seen and examined. no acute events. Denies fever, nausea, diarrhea, abd pain. + void. + amb. + tolerating diet. Objective - Vital Signs/Intake and Output Vital Signs (last 24 hours): Temp Pulse Resp BP Pulse Ox 98.1 F 64 18 109/68 97 01/23/18 00:55 01/23/18 00:55 01/23/18 00:55 01/23/18 00:55 01/23/18 00:55 - Medications Medications: Current Medications Acetaminophen (Tylenol 325mg Tab) 650 mg PO Q4 PRN PRN Reason: Pain, Mild (1-3) Alprazolam (Xanax) 0.5 mg PO HS PRN PRN Reason: Sleep Bismuth Subsalicylate (Pepto-Bismol) 524 mg PO Q6 PRN PRN Reason: Diarrhea Last Admin: 01/21/18 21:15 Dose: 524 mg Cilostazol (Pletal) 100 mg PO DAILY [facility] Last Admin: 01/22/18 08:37 Dose: 100 mg Hydrochlorothiazide (Hydrodiuril) 25 mg PO DAILY [facility] Last Admin: 01/22/18 08:37 Dose: 25 mg Meclizine HCl (Antivert) 25 mg PO BID [facility] Last Admin: 01/22/18 16:05 Dose: 25 mg Pentoxifylline (Pentoxil) 400 mg PO DAILY [facility] Last Admin: 01/22/18 08:37 Dose: 400 mg - Labs Labs: 01/21/18 05:10 01/21/18 05:10 - Constitutional Appears: No Acute Distress - Head Exam Head Exam: ATRAUMATIC, NORMAL INSPECTION, NORMOCEPHALIC - Eye Exam Eye Exam: EOMI, Normal appearance, PERRL Pupil Exam: NORMAL ACCOMODATION, PERRL - ENT Exam ENT Exam: Mucous Membranes Moist, Normal Exam - Neck Exam Neck Exam: Full ROM, Normal Inspection. absent: Lymphadenopathy - Respiratory Exam Respiratory Exam: Clear to Ausculation Bilateral, NORMAL BREATHING PATTERN - Cardiovascular Exam Cardiovascular Exam: REGULAR RHYTHM, +S1, +S2. absent: Murmur - GI/Abdominal Exam GI & Abdominal Exam: Soft, Normal Bowel Sounds. absent: Distended, Tenderness - Extremities Exam Extremities Exam: Full ROM, Normal Capillary Refill, Normal Inspection. absent : Joint Swelling, Pedal Edema - Back Exam Back Exam: NORMAL INSPECTION - Neurological Exam Neurological Exam: Alert, Awake, CN II-XII Intact, Normal Gait, Oriented x3 - Psychiatric Exam Psychiatric exam: Normal Affect, Normal Mood - Skin Skin Exam: Dry, Intact, Normal Color, Warm Assessment and Plan - Assessment and Plan (Free Text) Assessment: 82M with AAA US : mild carotid stanosis Plan: -f/u Brain MRI - further evaluation of anatomy - will reach out to company about grafts - plan for possible OR Further recs discuss with Dr. Silverman
[2018-01-23] MEDS: Cilostazol 100 mg Tab UD PO SCH (10:10)
--- NOTE | 2018-01-23 10:11 | MRI ---
PROCEDURE: MRI BRAIN WITHOUT CONTRAST HISTORY: dizziness COMPARISON: Unenhanced head CT 06/23/2013. TECHNIQUE: Multiplanar, multisequence MR images of the brain were obtained without intravenous contrast enhancement. FINDINGS: HEMORRHAGE: None DWI: No evidence of an acute or early subacute infarction. BRAIN PARENCHYMA: Diffuse cerebral atrophy and chronic microangiopathy are reiterated. No interval mass effect is identified or suspicious extra-axial fluid collection in the midline brain and appears diffusely unremarkable nevertheless. Posterior fossa contents remain unremarkable although trace chronic microangiopathy is identified at the brainstem. A chronic lacune is seen at the right thalamus. VENTRICLES: Unremarkable. No hydrocephalus. CRANIUM: Unremarkable. ORBITS: Grossly unremarkable. PARANASAL SINUSES/MASTOIDS: Clear VASCULAR SYSTEM: Skull base flow voids intact. OTHER FINDINGS: None. IMPRESSION: Age-appropriate age-related neuro degenerative changes are identified as well as a chronic lacune at the right thalamus. No definite acute intracranial findings are identified at this time.
--- NOTE | 2018-01-23 10:50 | CP.PCM.CON ---
History of Present Illness - History of Present Illness History of Present Illness: Consultation for preop cardiovascular risk stratification prior to AAA sx HPI: 82 year old male with hx of smoking, HTN , PVD admitted by for c/o intermittent abdominal discomfort ongoing for a few weeks prior to presentation. He was noted to have worsening AAA in size and is being planned for possilbe AAA surgery. Review of Systems - Review of Systems Systems not reviewed;Unavailable: Acuity of Condition - Constitutional Constitutional: As Per HPI - EENT Eyes: As Per HPI Ears: As Per HPI Nose/Mouth/Throat: As Per HPI - Cardiovascular Cardiovascular: As Per HPI - Respiratory Respiratory: As Per HPI - Gastrointestinal Gastrointestinal: As Per HPI - Genitourinary Genitourinary: As Per HPI - Reproductive: Male Reproductive:Male: As Per HPI - Musculoskeletal Musculoskeletal: As Per HPI - Integumentary Integumentary: As Per HPI - Neurological Neurological: As Per HPI - Psychiatric Psychiatric: As Per HPI - Endocrine Endocrine: As Per HPI - Hematologic/Lymphatic Hematologic: As Per HPI Past Patient History - Past Social History Smoking Status: Heavy Smoker > 10 Cigarettes Daily Alcohol: Social Drugs: Denies Home Situation {Lives}: With Family - CARDIAC Hx Cardiac Disorders: Yes Hx Hypertension: Yes - PULMONARY Hx Respiratory Disorders: Yes - NEUROLOGICAL Hx Neurological Disorder: No - HEENT Hx HEENT Problems: No - RENAL Hx Chronic Kidney Disease: No - ENDOCRINE/METABOLIC Hx Endocrine Disorders: Yes Hx Diabetes Mellitus Type 2: Yes - HEMATOLOGICAL/ONCOLOGICAL Hx Blood Disorders: No - INTEGUMENTARY Hx Dermatological Problems: No - MUSCULOSKELETAL/RHEUMATOLOGICAL Hx Musculoskeletal Disorders: Yes Hx Arthritis: Yes Hx Back Pain: Yes Hx Falls: No - GASTROINTESTINAL Hx Gastrointestinal Disorders: No - GENITOURINARY/GYNECOLOGICAL Hx Genitourinary Disorders: No - PSYCHIATRIC Hx Psychophysiologic Disorder: Yes Hx Anxiety: Yes Hx Substance Use: No - SURGICAL HISTORY Hx Surgeries: Yes Other/Comment: RLE vascular surgery Fame-Pop bypass. IVC filter. Skin Nose Ca - ANESTHESIA Hx Anesthesia: Yes Hx Anesthesia Reactions: No Meds Allergies/Adverse Reactions: Allergies Allergy/AdvReac Type Severity Reaction Status Date / Time No Known Allergies Allergy Verified 01/20/18 10:19 - Medications Medications: Current Medications Acetaminophen (Tylenol 325mg Tab) 650 mg PO Q4 PRN PRN Reason: Pain, Mild (1-3) Alprazolam (Xanax) 0.5 mg PO HS PRN PRN Reason: Sleep Bismuth Subsalicylate (Pepto-Bismol) 524 mg PO Q6 PRN PRN Reason: Diarrhea Last Admin: 01/21/18 21:15 Dose: 524 mg Cilostazol (Pletal) 100 mg PO DAILY [facility] Last Admin: 01/23/18 10:10 Dose: 100 mg Hydrochlorothiazide (Hydrodiuril) 25 mg PO DAILY [facility] Last Admin: 01/23/18 10:10 Dose: 25 mg Meclizine HCl (Antivert) 25 mg PO BID [facility] Last Admin: 01/23/18 10:10 Dose: 25 mg Pentoxifylline (Pentoxil) 400 mg PO DAILY [facility] Last Admin: 01/23/18 10:10 Dose: 400 mg Physical Exam - Constitutional Appears: Well - Head Exam Head Exam: ATRAUMATIC, NORMAL INSPECTION, NORMOCEPHALIC - Eye Exam Eye Exam: EOMI, Normal appearance, PERRL Pupil Exam: NORMAL ACCOMODATION, PERRL - ENT Exam ENT Exam: Mucous Membranes Moist, Normal Exam - Neck Exam Neck exam: Positive for: Normal Inspection - Respiratory Exam Respiratory Exam: Clear to Auscultation Bilateral, NORMAL BREATHING PATTERN - Cardiovascular Exam Cardiovascular Exam: REGULAR RHYTHM - GI/Abdominal Exam GI & Abdominal Exam: Normal Bowel Sounds, Soft. absent: Tenderness - Extremities Exam Extremities exam: Positive for: normal inspection - Back Exam Back exam: NORMAL INSPECTION - Neurological Exam Neurological exam: Alert, CN II-XII Intact, Normal Gait, Oriented x3, Reflexes Normal - Psychiatric Exam Psychiatric exam: Normal Affect, Normal Mood - Skin Skin Exam: Dry, Intact, Normal Color, Warm Results - Vital Signs Recent Vital Signs: Last Vital Signs Temp 97.7 F 01/23/18 07:52 Pulse 66 01/23/18 07:52 Resp 18 01/23/18 07:52 BP 115/70 01/23/18 07:52 Pulse Ox 96 01/23/18 07:52 - Labs Result Diagrams: 01/24/18 13:25 01/24/18 13:25 Labs: Laboratory Results - last 24 hr 01/22/18 01/22/18 01/22/18 10:55 15:24 21:25 POC Glucose (mg/dL) 108 161 H 182 H 01/23/18 05:31 POC Glucose (mg/dL) 108 Assessment & Plan (1) Preop cardiovascular exam Assessment and Plan: Will need ischemic evaluation with stress test npo p mn Status: Acute (2) AAA (abdominal aortic aneurysm) Assessment and Plan: rx with BB plan for surgical repair per vascular Status: Chronic Priority: High (3) DMII (diabetes mellitus, type 2) Status: Chronic Priority: Medium (4) HTN (hypertension) Assessment and Plan: cont hctz add bb Status: Chronic Priority: Medium (5) PVD (peripheral vascular disease) Status: Chronic Priority: High
--- NOTE | 2018-01-23 14:35 | CP.PCM.PN ---
Subjective - Date & Time of Evaluation Date of Evaluation: 01/23/18 Time of Evaluation: 11:00 - Subjective Subjective: F/U Abdominal pain. Diarrhea earlier, no abdominal pain , dizziness Objective - Vital Signs/Intake and Output Vital Signs (last 24 hours): Temp Pulse Resp BP Pulse Ox 97.7 F 66 18 115/70 96 01/23/18 07:52 01/23/18 07:52 01/23/18 07:52 01/23/18 07:52 01/23/18 07:52 - Medications Medications: Current Medications Acetaminophen (Tylenol 325mg Tab) 650 mg PO Q4 PRN PRN Reason: Pain, Mild (1-3) Alprazolam (Xanax) 0.5 mg PO Q12 [facility] Bismuth Subsalicylate (Pepto-Bismol) 524 mg PO Q6 PRN PRN Reason: Diarrhea Last Admin: 01/21/18 21:15 Dose: 524 mg Cilostazol (Pletal) 100 mg PO DAILY [facility] Last Admin: 01/23/18 10:10 Dose: 100 mg Hydrochlorothiazide (Hydrodiuril) 25 mg PO DAILY [facility] Last Admin: 01/23/18 10:10 Dose: 25 mg Meclizine HCl (Antivert) 25 mg PO BID [facility] Last Admin: 01/23/18 10:10 Dose: 25 mg Pentoxifylline (Pentoxil) 400 mg PO DAILY [facility] Last Admin: 01/23/18 10:10 Dose: 400 mg - Labs Labs: 01/21/18 05:10 01/21/18 05:10 - Constitutional Appears: No Acute Distress - Head Exam Head Exam: NORMAL INSPECTION - Eye Exam Eye Exam: PERRL - ENT Exam ENT Exam: Normal Exam - Neck Exam Neck Exam: Normal Inspection - Respiratory Exam Respiratory Exam: Decreased Breath Sounds (at bases), Rhonchi (few) - Cardiovascular Exam Cardiovascular Exam: REGULAR RHYTHM - GI/Abdominal Exam GI & Abdominal Exam: Soft, Tenderness (R-L lower quadrants), Normal Bowel Sounds. absent: Guarding, Rebound - Extremities Exam Additional comments: numbness R foot - Back Exam Back Exam: NORMAL INSPECTION - Neurological Exam Neurological Exam: Alert, Oriented x3 Additional comments: No focal motor sensory deficit. - Psychiatric Exam Psychiatric exam: Anxious - Skin Skin Exam: Warm Assessment and Plan (1) Abdominal pain Status: Acute (2) AAA (abdominal aortic aneurysm) Status: Chronic (3) Dizziness Status: Chronic (4) PVD (peripheral vascular disease) Status: Chronic (5) COPD (chronic obstructive pulmonary disease) Status: Chronic (6) DMII (diabetes mellitus, type 2) Status: Chronic (7) HTN (hypertension) Status: Chronic (8) Anxiety Status: Chronic - Assessment and Plan (Free Text) Plan: discussed with Patient modalities of treatment for AAA ,
--- NOTE | 2018-01-23 17:59 | CP.PCM.PN ---
Subjective - Date & Time of Evaluation Date of Evaluation: 01/23/18 Time of Evaluation: 17:59 - Subjective Subjective: Mr. dorsey was seen and examined at the bedside. He is alert, oriented and denies any headache, blurred vision, diplopia. He claims of feeling mild dizziness with sudden change of position. He is able to follow simple commands.MRI of the brain showed age appropriate age related neuro degenerative changes are identified as well as a chronic lacunae at the right thalamus. No definite acute intracranial findings are identified at this time. Carotid doppler showed carotid calcification with mild carotid stenosis. The patient is being prep for possible AAA surgery. Objective - Vital Signs/Intake and Output Vital Signs (last 24 hours): Temp Pulse Resp BP Pulse Ox 97.9 F 83 20 91/60 L 95 01/23/18 15:40 01/23/18 15:40 01/23/18 15:40 01/23/18 15:40 01/23/18 15:40 - Medications Medications: Current Medications Acetaminophen (Tylenol 325mg Tab) 650 mg PO Q4 PRN PRN Reason: Pain, Mild (1-3) Alprazolam (Xanax) 0.5 mg PO Q12 [facility] Aspirin (Aspirin Chewable) 81 mg PO DAILY [facility] Bismuth Subsalicylate (Pepto-Bismol) 524 mg PO Q6 PRN PRN Reason: Diarrhea Last Admin: 01/21/18 21:15 Dose: 524 mg Cilostazol (Pletal) 100 mg PO DAILY [facility] Last Admin: 01/23/18 10:10 Dose: 100 mg Hydrochlorothiazide (Hydrodiuril) 25 mg PO DAILY [facility] Last Admin: 01/23/18 10:10 Dose: 25 mg Meclizine HCl (Antivert) 25 mg PO BID [facility] Last Admin: 01/23/18 17:05 Dose: 25 mg Pentoxifylline (Pentoxil) 400 mg PO DAILY [facility] Last Admin: 01/23/18 10:10 Dose: 400 mg - Labs Labs: 01/21/18 05:10 01/21/18 05:10 - Constitutional Appears: No Acute Distress - Head Exam Head Exam: NORMAL INSPECTION - Neurological Exam Neurological Exam: Alert, Awake, Oriented x3 Neuro motor strength exam: Left Upper Extremity: 5, Right Upper Extremity: 5, Left Lower Extremity: 5, Right Lower Extremity: 5 Additional comments: Alert, oriented, follows simple commands. Sensation is intact. Assessment and Plan (1) Dizziness Assessment & Plan: Case discussed with Dr. Monique, continue all current medical and physical therapies. Recommend to start statin ( lipitor 10 mg PO daily) to maintain LDL < 70. Patient is already on pletal for vasodilation and assist in brain perfusion and being prep for AAA surgery. Status: Chronic
[2018-01-24] MEDS ORDERED: Aminophylline 25 mg/ml Inj ONE (09:23)
[2018-01-24] MEDS: Cilostazol 100 mg Tab UD PO SCH ×2 (10:29→17:23)
--- NOTE | 2018-01-24 12:25 | CP.PCM.PN ---
Subjective - Date & Time of Evaluation Date of Evaluation: 01/24/18 Time of Evaluation: 12:23 - Subjective Subjective: Surgery Pt seen and examined. No acute events. Pain controlled. Objective - Vital Signs/Intake and Output Vital Signs (last 24 hours): Temp Pulse Resp BP Pulse Ox 97.5 F L 63 18 113/69 95 01/24/18 09:00 01/24/18 09:00 01/24/18 09:00 01/24/18 09:00 01/24/18 09:00 - Medications Medications: Current Medications Acetaminophen (Tylenol 325mg Tab) 650 mg PO Q4 PRN PRN Reason: Pain, Mild (1-3) Alprazolam (Xanax) 0.5 mg PO Q12 [facility] Last Admin: 01/24/18 10:29 Dose: Not Given Atorvastatin Calcium (Lipitor) 10 mg PO HS [facility] Last Admin: 01/23/18 21:23 Dose: 10 mg Bismuth Subsalicylate (Pepto-Bismol) 524 mg PO Q6 PRN PRN Reason: Diarrhea Last Admin: 01/21/18 21:15 Dose: 524 mg Cilostazol (Pletal) 100 mg PO DAILY [facility] Last Admin: 01/24/18 10:29 Dose: Not Given Hydrochlorothiazide (Hydrodiuril) 25 mg PO DAILY [facility] Last Admin: 01/24/18 10:29 Dose: Not Given Meclizine HCl (Antivert) 25 mg PO BID [facility] Last Admin: 01/24/18 10:29 Dose: Not Given Pentoxifylline (Pentoxil) 400 mg PO DAILY [facility] Last Admin: 01/24/18 10:29 Dose: Not Given - Labs Labs: 01/21/18 05:10 01/21/18 05:10 - Constitutional Appears: No Acute Distress - Head Exam Head Exam: ATRAUMATIC, NORMAL INSPECTION, NORMOCEPHALIC - Eye Exam Eye Exam: EOMI, Normal appearance, PERRL Pupil Exam: NORMAL ACCOMODATION, PERRL - ENT Exam ENT Exam: Mucous Membranes Moist, Normal Exam - Neck Exam Neck Exam: Full ROM, Normal Inspection. absent: Lymphadenopathy - Respiratory Exam Respiratory Exam: Clear to Ausculation Bilateral, NORMAL BREATHING PATTERN - Cardiovascular Exam Cardiovascular Exam: REGULAR RHYTHM, +S1, +S2. absent: Murmur - GI/Abdominal Exam GI & Abdominal Exam: Soft, Normal Bowel Sounds. absent: Distended, Firm, Guarding, Rigid, Tenderness - Extremities Exam Extremities Exam: Full ROM, Normal Capillary Refill, Normal Inspection. absent : Joint Swelling, Pedal Edema - Back Exam Back Exam: NORMAL INSPECTION - Neurological Exam Neurological Exam: Alert, Awake, CN II-XII Intact, Normal Gait, Oriented x3 - Psychiatric Exam Psychiatric exam: Normal Affect, Normal Mood - Skin Skin Exam: Dry, Intact, Normal Color, Warm Assessment and Plan - Assessment and Plan (Free Text) Assessment: 82M with AAA US : mild carotid stanosis Brain MRI: No acute finding. Chronic changes. Plan: - further evaluation of anatomy - will reach out to company about grafts - plan for possible OR Further recs discuss with Dr. Silverman
[2018-01-24 13:39] LABS: MEAN CELL VOLUME 97.2 fl (80.0-94.0); MEAN CORPUSCULAR HEMOGLOBIN 33.1 pg (27.0-31.0); RBC 4.54 Mil/uL (4.40-5.90); RED CELL DISTRIBUTION WIDTH 13.8 % (11.5-14.5)
[2018-01-24 13:55] LABS: CALCIUM 8.9 mg/dL (8.4-10.2)
--- NOTE | 2018-01-24 13:56 | CP.PCM.PN ---
Subjective - Date & Time of Evaluation Date of Evaluation: 01/24/18 Time of Evaluation: 11:30 - Subjective Subjective: F/U Abdominal pain. No abdominal pain, no diarrhea , dizziness improved Objective - Vital Signs/Intake and Output Vital Signs (last 24 hours): Temp Pulse Resp BP Pulse Ox 97.5 F L 63 18 113/69 95 01/24/18 09:00 01/24/18 09:00 01/24/18 09:00 01/24/18 09:00 01/24/18 09:00 - Medications Medications: Current Medications Acetaminophen (Tylenol 325mg Tab) 650 mg PO Q4 PRN PRN Reason: Pain, Mild (1-3) Alprazolam (Xanax) 0.5 mg PO Q12 [facility] Last Admin: 01/24/18 10:29 Dose: Not Given Atorvastatin Calcium (Lipitor) 10 mg PO HS [facility] Last Admin: 01/23/18 21:23 Dose: 10 mg Bismuth Subsalicylate (Pepto-Bismol) 524 mg PO Q6 PRN PRN Reason: Diarrhea Last Admin: 01/21/18 21:15 Dose: 524 mg Cilostazol (Pletal) 100 mg PO DAILY [facility] Last Admin: 01/24/18 10:29 Dose: Not Given Hydrochlorothiazide (Hydrodiuril) 25 mg PO DAILY [facility] Last Admin: 01/24/18 10:29 Dose: Not Given Meclizine HCl (Antivert) 25 mg PO BID [facility] Last Admin: 01/24/18 10:29 Dose: Not Given Pentoxifylline (Pentoxil) 400 mg PO DAILY [facility] Last Admin: 01/24/18 10:29 Dose: Not Given - Labs Labs: 01/24/18 13:25 01/24/18 13:25 - Constitutional Appears: No Acute Distress - Head Exam Head Exam: NORMAL INSPECTION - Eye Exam Eye Exam: PERRL - ENT Exam ENT Exam: Normal Exam - Neck Exam Neck Exam: Normal Inspection - Respiratory Exam Respiratory Exam: Decreased Breath Sounds (at bases) - Cardiovascular Exam Cardiovascular Exam: REGULAR RHYTHM - GI/Abdominal Exam GI & Abdominal Exam: Soft, Tenderness (R-L lower quadrants). absent: Guarding, Rebound - Extremities Exam Additional comments: Numbness R foot - Back Exam Back Exam: NORMAL INSPECTION - Neurological Exam Neurological Exam: Alert, Oriented x3 Additional comments: No focal motor/sensory deficit. - Psychiatric Exam Psychiatric exam: Anxious - Skin Skin Exam: Warm Assessment and Plan (1) Abdominal pain Status: Acute (2) AAA (abdominal aortic aneurysm) Status: Chronic (3) Dizziness Status: Chronic (4) PVD (peripheral vascular disease) Status: Chronic (5) COPD (chronic obstructive pulmonary disease) Status: Chronic (6) DMII (diabetes mellitus, type 2) Status: Chronic (7) HTN (hypertension) Status: Chronic (8) Anxiety Status: Chronic - Assessment and Plan (Free Text) Plan: Neurology f/u patient, mild dizziness with head change positions ,MRI age related change chronic left 9 of the right no acute intracranial findings Patient with no neurologic deficit Patient had myocardial perfusion scan today f/u report for cardiac clearance. Dr. Mitchell will discuss with Patient Surgical procedure , Company called that measurements are compatible with endograft.
[2018-01-25] MEDS: Cilostazol 100 mg Tab UD PO SCH (08:37)
--- NOTE | 2018-01-25 10:08 | CARD ---
APPROVED REPORT EXAM: Two-dimensional and M-mode echocardiogram with Doppler and color Doppler. Other Information Quality : FairRhythm : NSR INDICATION Hypertension/HCVD Pre-Op COPD 2D DIMENSIONS IVSd1.04 (0.7-1.1cm)LVDd3.55 (3.9-5.9cm) LVOT Diameter2.31 (1.8-2.4cm)PWd0.97 (0.7-1.1cm) IVSs1.05 (0.8-1.2cm)LVDs2.85 (2.5-4.0cm) FS (%) 19.7 %PWs1.12 (0.8-1.2cm) M-Mode DIMENSIONS Left Atrium (MM)3.32 (2.5-4.0cm)IVSd0.94 (0.7-1.1cm) Aortic Root3.71 (2.2-3.7cm)LVDd4.71 (4.0-5.6cm) Aortic Cusp Exc.2.09 (1.5-2.0cm)PWd0.74 (0.7-1.1cm) IVSs1.47 cmFS (%) 32 % LVDs3.21 (2.0-3.8cm)PWs1.03 cm Mitral Valve MV E Ythjoaav20.1cm/sMV DECEL [id number] A Vdbyknms25.4cm/s MV VQJ13orL/A ratio0.5MVA (PHT)4.16cm2 TDI Lateral E' Peak V6.03cm/sMedial E' Peak V3.50cm/sE/Lateral E'6.5 E/Medial E'11.2 Pulmonary Valve PV Peak Bkdgdhko859.7cm/s LEFT VENTRICLE The left ventricle is normal size. There is normal left ventricular wall thickness. The left ventricular function is normal. The left ventricular ejection fraction is 60-65% There is normal LV segmental wall motion. Transmitral Doppler flow pattern is Grade I-abnormal relaxation pattern. No left ventricle thrombus noted on this study. There is no ventricular septal defect visualized. There is no left ventricular aneurysm. There is no mass noted in the left ventricle. RIGHT VENTRICLE The right ventricle is normal size. There is normal right ventricular wall thickness. The right ventricular systolic function is normal. ATRIA The left atrium size is normal. The right atrium size is normal. The interatrial septum is intact with no evidence for an atrial septal defect. AORTIC VALVE The aortic valve is mildly sclerotic. No aortic regurgitation is present. There is no aortic valvular stenosis. There is no aortic valvular vegetation. MITRAL VALVE The mitral valve is normal in structure. There is no evidence of mitral valve prolapse. There is no mitral valve stenosis. There is no mitral valve regurgitation noted. TRICUSPID VALVE The tricuspid valve is normal in structure. There is no tricuspid valve regurgitation noted. There is no tricuspid valve prolapse or vegetation. There is no tricuspid valve stenosis. PULMONIC VALVE The pulmonary valve is normal in structure. There is no pulmonic valvular regurgitation. There is no pulmonic valvular stenosis. GREAT VESSELS The aortic root is normal in size. The ascending aorta is normal in size. The IVC is normal in size and collapses >50% with inspiration. PERICARDIAL EFFUSION The pericardium appears normal. There is no pleural effusion. <Conclusion> Normal LV Systolic Function Aortic Valve Sclerosis Impaired Diastolic Relaxation
--- NOTE | 2018-01-25 11:28 | CP.PCM.PN ---
Subjective - Date & Time of Evaluation Date of Evaluation: 01/25/18 Time of Evaluation: 10:30 - Subjective Subjective: Vascular Surgery Pt Seen and examined. No acute events, minimal complaint of mild pain in abd. Objective - Vital Signs/Intake and Output Vital Signs (last 24 hours): Temp Pulse Resp BP Pulse Ox 97.5 F L 68 20 98/60 L 98 01/25/18 08:12 01/25/18 08:12 01/25/18 08:12 01/25/18 08:12 01/25/18 08:12 - Medications Medications: Current Medications Acetaminophen (Tylenol 325mg Tab) 650 mg PO Q4 PRN PRN Reason: Pain, Mild (1-3) Alprazolam (Xanax) 0.5 mg PO Q12 [facility] Last Admin: 01/25/18 08:39 Dose: 0.5 mg Atorvastatin Calcium (Lipitor) 10 mg PO HS [facility] Last Admin: 01/24/18 21:25 Dose: 10 mg Bismuth Subsalicylate (Pepto-Bismol) 524 mg PO Q6 PRN PRN Reason: Diarrhea Last Admin: 01/21/18 21:15 Dose: 524 mg Cilostazol (Pletal) 100 mg PO DAILY [facility] Last Admin: 01/25/18 08:37 Dose: 100 mg Hydrochlorothiazide (Hydrodiuril) 25 mg PO DAILY [facility] Last Admin: 01/25/18 08:37 Dose: 25 mg Meclizine HCl (Antivert) 25 mg PO BID [facility] Last Admin: 01/25/18 08:37 Dose: 25 mg Pentoxifylline (Pentoxil) 400 mg PO DAILY [facility] Last Admin: 01/25/18 08:38 Dose: 400 mg - Labs Labs: 01/24/18 13:25 01/24/18 13:25 - Constitutional Appears: Non-toxic, No Acute Distress - Head Exam Head Exam: ATRAUMATIC, NORMOCEPHALIC - Eye Exam Eye Exam: EOMI. absent: Scleral icterus - Respiratory Exam Respiratory Exam: NORMAL BREATHING PATTERN. absent: Respiratory Distress - GI/Abdominal Exam GI & Abdominal Exam: Soft. absent: Distended, Firm, Guarding, Rigid, Tenderness - Neurological Exam Neurological Exam: Alert, Awake, Oriented x3 - Skin Skin Exam: Dry, Warm Assessment and Plan - Assessment and Plan (Free Text) Assessment: 82M with infrarenal AAA Plan: Planning for EVAR of AAA to be done at [facility]. Will need to be transferred for the procedure. D/W Dr. Herrera Montoya PGY4
--- NOTE | 2018-01-25 12:14 | CP.PCM.PN ---
Subjective - Date & Time of Evaluation Date of Evaluation: 01/25/18 Time of Evaluation: 11:10 - Subjective Subjective: F/U Abdominal pain. No abdominal pain , no dizziness , no diarrhea , no cough Objective - Vital Signs/Intake and Output Vital Signs (last 24 hours): Temp Pulse Resp BP Pulse Ox 97.5 F L 68 20 98/60 L 98 01/25/18 08:12 01/25/18 08:12 01/25/18 08:12 01/25/18 08:12 01/25/18 08:12 - Medications Medications: Current Medications Acetaminophen (Tylenol 325mg Tab) 650 mg PO Q4 PRN PRN Reason: Pain, Mild (1-3) Alprazolam (Xanax) 0.5 mg PO Q12 [facility] Last Admin: 01/25/18 08:39 Dose: 0.5 mg Atorvastatin Calcium (Lipitor) 10 mg PO HS [facility] Last Admin: 01/24/18 21:25 Dose: 10 mg Bismuth Subsalicylate (Pepto-Bismol) 524 mg PO Q6 PRN PRN Reason: Diarrhea Last Admin: 01/21/18 21:15 Dose: 524 mg Cilostazol (Pletal) 100 mg PO DAILY [facility] Last Admin: 01/25/18 08:37 Dose: 100 mg Hydrochlorothiazide (Hydrodiuril) 25 mg PO DAILY [facility] Last Admin: 01/25/18 08:37 Dose: 25 mg Meclizine HCl (Antivert) 25 mg PO BID [facility] Last Admin: 01/25/18 08:37 Dose: 25 mg Pentoxifylline (Pentoxil) 400 mg PO DAILY [facility] Last Admin: 01/25/18 08:38 Dose: 400 mg - Labs Labs: 01/24/18 13:25 01/24/18 13:25 - Constitutional Appears: No Acute Distress - Head Exam Head Exam: NORMAL INSPECTION - Eye Exam Eye Exam: PERRL - ENT Exam ENT Exam: Normal Exam - Neck Exam Neck Exam: Normal Inspection - Respiratory Exam Respiratory Exam: Decreased Breath Sounds (at bases) - Cardiovascular Exam Cardiovascular Exam: REGULAR RHYTHM - GI/Abdominal Exam GI & Abdominal Exam: Soft, Normal Bowel Sounds. absent: Guarding, Rebound Additional comments: mild R L LQ and suprapubic tenderness - Extremities Exam Extremities Exam: Normal Inspection Additional comments: mild numbness R foot - Back Exam Back Exam: NORMAL INSPECTION - Neurological Exam Neurological Exam: Alert, Motor Sensory Deficit, Oriented x3. absent: CN II- XII Intact Additional comments: no motor/sensory deficit - Psychiatric Exam Psychiatric exam: Anxious - Skin Skin Exam: Warm Assessment and Plan (1) Abdominal pain Status: Acute (2) AAA (abdominal aortic aneurysm) Status: Chronic (3) Dizziness Status: Chronic (4) PVD (peripheral vascular disease) Status: Chronic (5) COPD (chronic obstructive pulmonary disease) Status: Chronic (6) DMII (diabetes mellitus, type 2) Status: Chronic (7) HTN (hypertension) Status: Chronic (8) Anxiety Status: Chronic - Assessment and Plan (Free Text) Plan: f/u Myocardial Perfusion Scan report, f/u Cardiac Clearance Dr Mason , discussed with Dr Mitchell Vascular marketing database consultant , Patient agrees to have AAA Endograft am in [facility] , increase BUN Creatinine , start IVF.
[2018-01-25] MEDS: Sodium Chloride 0.45% 1,000 ML IV SCH ×2 (13:15→23:55)
--- NOTE | 2018-01-25 14:26 | CP.PCM.PCO ---
Assessment/Plan - Assessment/Plan Assessment (Free Text): Pt stable, seen by Dr. Sullivan and Dr. Mason. Per Dr. Sullivan, pt is to be transferred to [facility] under the [facility], pt scheduled for surgery tomorrow by Dr. Silverman. Dr. Mason will put in cardiac clearance note. Arrangements being made for transfer. Patient and RN aware of plan
--- NOTE | 2018-01-25 15:10 | CARD ---
APPROVED REPORT Protocol: LEXISCAN Test Type: Stress Nuclear Medications: Xanax 0.5mg Aspirin 81mg Pepto-bismol 524 mg Cilostazol 100mg Hydrochlorothiazide 25mg Meclizine 25mg Pentoxil 400mg Medical History: FEM POP BYPASS RLEG IVC FILTER SYNCOPE,DIZZINESS DM AAA Target HR: 136 bpm Resting ECG: normal Resting Heart Rate: 63 bpm Resting Blood Pressure: /mmHg submaximum (85%): 116 bpm TEST SUMMARY PREINJECTPRE-[id number]. [id number]/50.0. INJECTIONNUC MED00:[id number]/52.0. [id number]. POST EXERCISE Reason for Termination: PROTOCOL COMPLETED Target HR: No Max HR: 63 bpm 63% of Maximum Predicted HR: 136 bpm Exercise duration: 00:26 min:sec, 0 Stage Exercise capacity: 1.0METs Max Blood Pressure: 145/69mmHg Blood Pressure response to exercise: N/A Heart Rate response to exercise: N/A Chest Pain: No, none Angina index: 0 Arrhythmia: No, none ST Change: No, none Deviation: 0 mm NUCLEAR IMAGE INTERPRETATION Study quality was good. Left Ventricular size was Normal at Rest and Stress. Lung uptake was Normal. Left Ventricular ejection fraction is 68%. LV Perfusion Small inferior fixed defect secondary to bowel loop attenuation artifact LV Perfusion 1 Perfusion Defect Location: mid inferoseptal Perfusion Defect Size: Small (1-2 segments) Perfusion Defect Severity: Mild Type of Perfusion Defect: Fixed TCD/TID: No CONCLUSION 1. - No evidence of reversible ischemia 2. - Normal LVEF Recommendation - Aggressive medical management and risk factor modification
--- NOTE | 2018-01-25 15:16 | CP.PCM.PN ---
Subjective - Date & Time of Evaluation Date of Evaluation: 01/25/18 Time of Evaluation: 15:14 - Subjective Subjective: pt seen and evaluted laying in bed comfortable s/p stress test yesterday Objective - Vital Signs/Intake and Output Vital Signs (last 24 hours): Temp Pulse Resp BP Pulse Ox 97.5 F L 68 20 98/60 L 98 01/25/18 08:12 01/25/18 08:12 01/25/18 08:12 01/25/18 08:12 01/25/18 08:12 - Medications Medications: Current Medications Acetaminophen (Tylenol 325mg Tab) 650 mg PO Q4 PRN PRN Reason: Pain, Mild (1-3) Alprazolam (Xanax) 0.5 mg PO Q12 [facility] Last Admin: 01/25/18 08:39 Dose: 0.5 mg Atorvastatin Calcium (Lipitor) 10 mg PO HS [facility] Last Admin: 01/24/18 21:25 Dose: 10 mg Bismuth Subsalicylate (Pepto-Bismol) 524 mg PO Q6 PRN PRN Reason: Diarrhea Last Admin: 01/21/18 21:15 Dose: 524 mg Cilostazol (Pletal) 100 mg PO DAILY [facility] Last Admin: 01/25/18 08:37 Dose: 100 mg Hydrochlorothiazide (Hydrodiuril) 25 mg PO DAILY [facility] Last Admin: 01/25/18 08:37 Dose: 25 mg Sodium Chloride (Sodium Chloride 0.45%) 1,000 mls @ 90 mls/hr IV .Q11H7M [facility] Stop: 01/27/18 23:59 Meclizine HCl (Antivert) 25 mg PO BID [facility] Last Admin: 01/25/18 08:37 Dose: 25 mg Pentoxifylline (Pentoxil) 400 mg PO DAILY [facility] Last Admin: 01/25/18 08:38 Dose: 400 mg - Labs Labs: 01/24/18 13:25 01/24/18 13:25 - Constitutional Appears: Well - Head Exam Head Exam: ATRAUMATIC, NORMAL INSPECTION, NORMOCEPHALIC - Eye Exam Eye Exam: EOMI, Normal appearance, PERRL Pupil Exam: NORMAL ACCOMODATION, PERRL - ENT Exam ENT Exam: Mucous Membranes Moist, Normal Exam - Neck Exam Neck Exam: Full ROM, Normal Inspection. absent: Lymphadenopathy - Respiratory Exam Respiratory Exam: Clear to Ausculation Bilateral, NORMAL BREATHING PATTERN - Cardiovascular Exam Cardiovascular Exam: REGULAR RHYTHM, +S1, +S2. absent: Murmur - GI/Abdominal Exam GI & Abdominal Exam: Soft, Normal Bowel Sounds. absent: Tenderness - Extremities Exam Extremities Exam: Full ROM, Normal Capillary Refill, Normal Inspection. absent : Joint Swelling, Pedal Edema - Back Exam Back Exam: NORMAL INSPECTION - Neurological Exam Neurological Exam: Alert, Awake, CN II-XII Intact, Normal Gait, Oriented x3 - Psychiatric Exam Psychiatric exam: Normal Affect, Normal Mood - Skin Skin Exam: Dry, Intact, Normal Color, Warm Assessment and Plan (1) Preop cardiovascular exam Assessment & Plan: s/p stress test showing no evidence of ischemia As per ACC/AHA guidelines he can proceed with planned surgery of AAA with low risk for perioperative cardiac event keep pt on bb Status: Acute (2) AAA (abdominal aortic aneurysm) Status: Chronic (3) DMII (diabetes mellitus, type 2) Status: Chronic (4) HTN (hypertension) Assessment & Plan: cont HCTZ add bb Status: Chronic (5) PVD (peripheral vascular disease) Status: Chronic
--- NOTE | 2018-01-25 15:17 | CP.PCM.PN ---
Subjective - Date & Time of Evaluation Date of Evaluation: 01/24/18 Time of Evaluation: 10:00 - Subjective Subjective: plan for stress test today Objective - Vital Signs/Intake and Output Vital Signs (last 24 hours): Temp Pulse Resp BP Pulse Ox 97.5 F L 68 20 98/60 L 98 01/25/18 08:12 01/25/18 08:12 01/25/18 08:12 01/25/18 08:12 01/25/18 08:12 - Medications Medications: Current Medications Acetaminophen (Tylenol 325mg Tab) 650 mg PO Q4 PRN PRN Reason: Pain, Mild (1-3) Alprazolam (Xanax) 0.5 mg PO Q12 [facility] Last Admin: 01/25/18 08:39 Dose: 0.5 mg Atorvastatin Calcium (Lipitor) 10 mg PO HS [facility] Last Admin: 01/24/18 21:25 Dose: 10 mg Bismuth Subsalicylate (Pepto-Bismol) 524 mg PO Q6 PRN PRN Reason: Diarrhea Last Admin: 01/21/18 21:15 Dose: 524 mg Cilostazol (Pletal) 100 mg PO DAILY [facility] Last Admin: 01/25/18 08:37 Dose: 100 mg Hydrochlorothiazide (Hydrodiuril) 25 mg PO DAILY [facility] Last Admin: 01/25/18 08:37 Dose: 25 mg Sodium Chloride (Sodium Chloride 0.45%) 1,000 mls @ 90 mls/hr IV .Q11H7M [facility] Stop: 01/27/18 23:59 Meclizine HCl (Antivert) 25 mg PO BID [facility] Last Admin: 01/25/18 08:37 Dose: 25 mg Pentoxifylline (Pentoxil) 400 mg PO DAILY [facility] Last Admin: 01/25/18 08:38 Dose: 400 mg - Labs Labs: 01/24/18 13:25 01/24/18 13:25 - Constitutional Appears: Well - Head Exam Head Exam: ATRAUMATIC, NORMAL INSPECTION, NORMOCEPHALIC - Eye Exam Eye Exam: EOMI, Normal appearance, PERRL Pupil Exam: NORMAL ACCOMODATION, PERRL - ENT Exam ENT Exam: Mucous Membranes Moist, Normal Exam - Neck Exam Neck Exam: Full ROM, Normal Inspection. absent: Lymphadenopathy - Respiratory Exam Respiratory Exam: Clear to Ausculation Bilateral, NORMAL BREATHING PATTERN - Cardiovascular Exam Cardiovascular Exam: REGULAR RHYTHM, +S1, +S2. absent: Murmur - GI/Abdominal Exam GI & Abdominal Exam: Soft, Normal Bowel Sounds. absent: Tenderness - Extremities Exam Extremities Exam: Full ROM, Normal Capillary Refill, Normal Inspection. absent : Joint Swelling, Pedal Edema - Back Exam Back Exam: NORMAL INSPECTION - Neurological Exam Neurological Exam: Alert, Awake, CN II-XII Intact, Normal Gait, Oriented x3 - Psychiatric Exam Psychiatric exam: Normal Affect, Normal Mood - Skin Skin Exam: Dry, Intact, Normal Color, Warm Assessment and Plan (1) Preop cardiovascular exam Assessment & Plan: stress test today Status: Acute (2) AAA (abdominal aortic aneurysm) Status: Chronic (3) DMII (diabetes mellitus, type 2) Status: Chronic (4) HTN (hypertension) Status: Chronic (5) PVD (peripheral vascular disease) Status: Chronic
--- NOTE | 2018-01-26 07:46 | CP.PCM.PN ---
Subjective - Date & Time of Evaluation Date of Evaluation: 01/26/18 Time of Evaluation: 07:42 - Subjective Subjective: Surgery Patient seen and examined. Per note, pt refused to be transfered for procedure yesterday. Pt agreeable today. No acute events. Tolerating diet. Objective - Vital Signs/Intake and Output Vital Signs (last 24 hours): Temp Pulse Resp BP Pulse Ox 97.6 F 78 18 95/56 L 100 01/26/18 00:41 01/26/18 00:41 01/26/18 00:41 01/26/18 00:41 01/26/18 00:41 - Medications Medications: Current Medications Acetaminophen (Tylenol 325mg Tab) 650 mg PO Q4 PRN PRN Reason: Pain, Mild (1-3) Alprazolam (Xanax) 0.5 mg PO Q12 [facility] Last Admin: 01/25/18 21:08 Dose: 0.5 mg Atorvastatin Calcium (Lipitor) 10 mg PO HS [facility] Last Admin: 01/25/18 21:08 Dose: 10 mg Bismuth Subsalicylate (Pepto-Bismol) 524 mg PO Q6 PRN PRN Reason: Diarrhea Last Admin: 01/21/18 21:15 Dose: 524 mg Cilostazol (Pletal) 100 mg PO DAILY [facility] Last Admin: 01/25/18 08:37 Dose: 100 mg Hydrochlorothiazide (Hydrodiuril) 25 mg PO DAILY [facility] Last Admin: 01/25/18 08:37 Dose: 25 mg Sodium Chloride (Sodium Chloride 0.45%) 1,000 mls @ 90 mls/hr IV .Q11H7M [facility] Stop: 01/27/18 23:59 Last Admin: 01/25/18 23:55 Dose: Not Given Meclizine HCl (Antivert) 25 mg PO BID [facility] Last Admin: 01/25/18 17:36 Dose: 25 mg Pentoxifylline (Pentoxil) 400 mg PO DAILY [facility] Last Admin: 01/25/18 08:38 Dose: 400 mg - Labs Labs: 01/24/18 13:25 01/24/18 13:25 - Constitutional Appears: No Acute Distress - Head Exam Head Exam: ATRAUMATIC, NORMAL INSPECTION, NORMOCEPHALIC - Eye Exam Eye Exam: EOMI, Normal appearance, PERRL Pupil Exam: NORMAL ACCOMODATION, PERRL - ENT Exam ENT Exam: Mucous Membranes Moist, Normal Exam - Neck Exam Neck Exam: Full ROM, Normal Inspection. absent: Lymphadenopathy - Respiratory Exam Respiratory Exam: Clear to Ausculation Bilateral, NORMAL BREATHING PATTERN - Cardiovascular Exam Cardiovascular Exam: REGULAR RHYTHM, +S1, +S2. absent: Murmur - GI/Abdominal Exam GI & Abdominal Exam: Soft, Normal Bowel Sounds. absent: Distended, Firm, Guarding, Rigid, Tenderness - Extremities Exam Extremities Exam: Full ROM, Normal Capillary Refill, Normal Inspection. absent : Joint Swelling, Pedal Edema - Back Exam Back Exam: NORMAL INSPECTION - Neurological Exam Neurological Exam: Alert, Awake, CN II-XII Intact, Normal Gait, Oriented x3 - Psychiatric Exam Psychiatric exam: Normal Affect, Normal Mood - Skin Skin Exam: Dry, Intact, Normal Color, Warm Assessment and Plan - Assessment and Plan (Free Text) Assessment: 82M with infrarenal AAA Plan: Planning for EVAR of AAA to be done at [facility] [place]. Will need to be transferred for the procedure. Will D/W Dr. Silverman
[2018-01-26 08:22] VITALS: RESP 20
[2018-01-26] MEDS: Cilostazol 100 mg Tab UD PO SCH (08:38)
[2018-01-26] MEDS ORDERED: Albuterol-Ipratrop 3 mg / 0.5 (3 ml) UD INH STA (11:04)
--- NOTE | 2018-01-26 12:11 | CP.PCM.PN ---
Subjective - Date & Time of Evaluation Date of Evaluation: 01/26/18 Time of Evaluation: 10:30 - Subjective Subjective: F/U Abdominal pain. Objective - Vital Signs/Intake and Output Vital Signs (last 24 hours): Temp Pulse Resp BP Pulse Ox 97.5 F L 60 20 111/70 97 01/26/18 08:22 01/26/18 08:22 01/26/18 08:22 01/26/18 08:22 01/26/18 08:22 - Medications Medications: Current Medications Acetaminophen (Tylenol 325mg Tab) 650 mg PO Q4 PRN PRN Reason: Pain, Mild (1-3) Albuterol/Ipratropium (Duoneb 3 Mg/0.5 Mg (3 Ml) Ud) [address] [facility] Alprazolam (Xanax) 0.[address] [facility] Last Admin: 01/26/18 08:38 Dose: 0.5 mg Atorvastatin Calcium (Lipitor) [address] [facility] Last Admin: 01/25/18 21:08 Dose: 10 mg Bismuth Subsalicylate (Pepto-Bismol) 524 mg PO Q6 PRN PRN Reason: Diarrhea Last Admin: 01/21/18 21:15 Dose: 524 mg Cilostazol (Pletal) [address] [facility] Last Admin: 01/26/18 08:38 Dose: 100 mg Hydrochlorothiazide (Hydrodiuril) [address] [facility] Last Admin: 01/26/18 08:39 Dose: 25 mg Sodium Chloride (Sodium Chloride 0.45%) 1,000 mls @ 90 mls/hr IV .Q11H7M [facility] Stop: 01/27/18 23:59 Last Admin: 01/25/18 23:55 Dose: Not Given Meclizine HCl (Antivert) [address] [facility] Last Admin: 01/26/18 08:38 Dose: 25 mg Pentoxifylline (Pentoxil) [address] [facility] Last Admin: 01/26/18 08:38 Dose: 400 mg - Labs Labs: 01/24/18 13:25 01/24/18 13:25 - Constitutional Appears: No Acute Distress, Chronically Ill - Eye Exam Eye Exam: PERRL - ENT Exam ENT Exam: Normal Exam - Neck Exam Neck Exam: Normal Inspection - Respiratory Exam Respiratory Exam: Decreased Breath Sounds (at bases) - Cardiovascular Exam Cardiovascular Exam: REGULAR RHYTHM - GI/Abdominal Exam GI & Abdominal Exam: Soft, Tenderness (mild R-L LQ and suprapubic.), Normal Bowel Sounds. absent: Guarding, Rebound - Extremities Exam Additional comments: Mild numbness R foot - Back Exam Back Exam: NORMAL INSPECTION - Neurological Exam Neurological Exam: Alert, CN II-XII Intact, Oriented x3. absent: Motor Sensory Deficit - Psychiatric Exam Psychiatric exam: Anxious - Skin Skin Exam: Warm Assessment and Plan (1) Abdominal pain Status: Acute (2) AAA (abdominal aortic aneurysm) Status: Chronic (3) Dizziness Status: Chronic (4) PVD (peripheral vascular disease) Status: Chronic (5) COPD (chronic obstructive pulmonary disease) Status: Chronic (6) DMII (diabetes mellitus, type 2) Status: Chronic (7) HTN (hypertension) Status: Chronic (8) Anxiety Status: Chronic
[2018-01-26] MEDS: Sodium Chloride 0.45% 1,000 ML IV SCH (12:51)
[2018-01-26] MEDS: Albuterol-Ipratrop 3 mg / 0.5 (3 ml) UD INH SCH ×2 (14:06→19:16)
[2018-01-26 16:37] VITALS: BP 110/58; PULSE 84; TEMP 97.6; O2SAT 96
== END 2018-01-26 21:00 | disposition short-term general hospital (02) | DRG 301 ==
LOC: H.ER 09:45 → H.ERHOLD 12:48 → H.MEDSURG1 14:43 → OBSVTOIN 01-22 17:53
PROVIDERS: ADMIT Internal Medicine Pulmonary Disease; ATTEND Internal Medicine Pulmonary Disease
DX: I71.4 Abdominal aortic aneurysm, without rupture (principal); I10 Essential (primary) hypertension; E11.42 Type 2 diabetes mellitus with diabetic polyneuropathy; I65.29 Occlusion and stenosis of unspecified carotid artery; J44.9 Chronic obstructive pulmonary disease, unspecified; F41.9 Anxiety disorder, unspecified; I73.9 Peripheral vascular disease, unspecified; F17.210 Nicotine dependence, cigarettes, uncomplicated; Z86.718 Personal history of other venous thrombosis and embolism; Z86.79 Personal history of other diseases of the circulatory system

== ENCOUNTER 2018-12-26 14:16 | Inpatient (IN) | payer MEDICARE ==
[2018-12-26 14:16] VITALS: BMI 28.1
[2018-12-26] MEDS ORDERED: Iohexol 240 (50 ml) PO ONE (15:16)
[2018-12-26 15:42] LABS: BASO % 0.3 % (0.0-2.0); EOS # 0.1 K/uL (0.0-0.7); EOS % 1.5 % (0.0-4.0); HEMOGLOBIN 13.6 g/dL (12.0-18.0); LYMPH # 0.9 K/uL (1.0-4.3); LYMPH % 15.7 % (20.0-40.0); MEAN CELL VOLUME 97.8 fl (80.0-94.0); MEAN CORPUSCULAR HGB CONC 32.7 g/dL (33.0-37.0); MEAN PLATELET VOLUME 8.5 fl (7.2-11.7); MONO # 0.6 K/uL (0.0-0.8); MONO % 10.4 % (0.0-10.0); NEUT # 4.1 K/uL (1.8-7.0); NEUT % 72.1 % (50.0-75.0); NRBC % 0.3 % (0.0-0.0); RBC 4.26 Mil/uL (4.40-5.90); RED CELL DISTRIBUTION WIDTH 14.2 % (11.5-14.5); WHITE BLOOD COUNT 5.7 K/uL (4.8-10.8)
[2018-12-26 15:45] LABS: VENOUS BLOOD GAS BASE EXCESS -1.3 mmol/L (0.0-2.0); VENOUS BLOOD GAS PCO2 46 mmHg (40-60); VENOUS BLOOD GAS PO2 27 mm/Hg (30-55); VENOUS BLOOD PH 7.34 (7.32-7.43)
[2018-12-26] MEDS ORDERED: Iohexol 240 (50 ml) ONE (15:56)
[2018-12-26 15:57] LABS: ALB/GLOB RATIO 1.2 (1.0-2.1); ALBUMIN 4.1 g/dL (3.5-5.0); CALCIUM 8.4 mg/dL (8.4-10.2)
--- NOTE | 2018-12-26 16:00 | RAD ---
Date of service: 12/26/2018 HISTORY: possible admission COMPARISON: 01/20/2018. FINDINGS: LUNGS: Chronic interstitial lung disease unchanged. PLEURA: No significant pleural effusion identified, no pneumothorax apparent. CARDIOVASCULAR: Atherosclerotic calcifications identified primarily aortic arch. No radiographic findings to suggest acute or significant cardiovascular disease. OSSEOUS STRUCTURES: No significant abnormalities. VISUALIZED UPPER ABDOMEN: Normal. OTHER FINDINGS: None. IMPRESSION: No active disease. No significant interval change compared to the prior examination(s).
[2018-12-26 16:06] LABS: SQUAMOUS EPITHIAL 1 /hpf (0-5); URINE BILIRUBIN NEGATIVE (NEGATIVE); URINE CLARITY SLIGHTY-CLOUDY (Clear); URINE COLOR YELLOW (YELLOW); URINE GLUCOSE (UA) NEG (NEGATIVE); URINE LEUKOCYTE ESTERASE NEG Leu/uL (Negative); URINE PROTEIN 30 mg/dL (NEGATIVE); URINE UROBILINOGEN 0.2-1.0 mg/dL (0.2-1.0)
[2018-12-26 16:07] LABS: TROPONIN I 0.021 ng/mL (0.00-0.120)
[2018-12-26 16:12] LABS: URINE BLOOD SMALL (NEGATIVE)
--- NOTE | 2018-12-26 16:49 | CT ---
Date of service: 12/26/2018 PROCEDURE: CT HEAD WITHOUT CONTRAST. HISTORY: weakness, AMS COMPARISON: Noncontrast head CT 06/23/2013. Brain MRI 01/23/2018. TECHNIQUE: Axial computed tomography images were obtained through the head/brain without intravenous contrast. Radiation dose: Total exam DLP = 803.11 mGy-cm. This CT exam was performed using one or more of the following dose reduction techniques: Automated exposure control, adjustment of the mA and/or kV according to patient size, and/or use of iterative reconstruction technique. FINDINGS: HEMORRHAGE: No intracranial hemorrhage. BRAIN: Good corticomedullary differentiation is seen. Reiterated diffuse cerebral atrophy and chronic microangiopathy. No suspicious extra-axial fluid collection is identified and the midline brain anatomy appears grossly nonfocal as imaged. No mass effect identified. VENTRICLES: Unremarkable. No hydrocephalus. CALVARIUM: Unremarkable. PARANASAL SINUSES: Unremarkable as visualized. No significant inflammatory changes. MASTOID AIR CELLS: Unremarkable as visualized. No inflammatory changes. OTHER FINDINGS: None. IMPRESSION: Stable age related neuro degenerative changes as compared prior CT 06/23/2013. No acute findings as per standard CT criteria.
--- NOTE | 2018-12-26 16:58 | ED PDOC ---
HPI: Neurologic - General Time Seen by Provider: 12/26/18 15:06 Chief Complaint (Nursing): Dizziness/Lightheaded Chief Complaint (Provider): decreased strength, dizziness Source: patient, family Exam Limitations: no limitations - History of Present Illness Timing/Duration: other (48hr) Associated Symptoms: slurred speech Allergies/Adverse Reactions: Allergies No Known Allergies Allergy (Verified 01/20/18 10:19) Home Medications: Ambulatory Orders Cilostazol [Pletal] 100 mg PO Q12 01/20/18 Glimepiride [Amaryl] 4 mg PO BID 01/20/18 Pentoxifylline 400 mg PO TID 01/20/18 SITagliptin [Januvia] 50 mg PO DAILY 01/20/18 Alprazolam [Xanax] 0.5 mg PO HS 12/26/18 Aspirin [Ecotrin] 81 mg PO DAILY 12/26/18 Atorvastatin [Lipitor] 20 mg PO DAILY 12/26/18 Esomeprazole Magnesium [Nexium] 40 mg PO DAILY 12/26/18 Fluticasone/Vilanterol [Breo Ellipta 200-25 Mcg INH] 1 puff IH DAILY 12/26/18 Meclizine [Meclizine*] 25 mg PO Q12 12/26/18 Additional Complaint(s): 83 year old male presents to the ED with and son. Patient has had a 48 hrs of decreased strength, dizziness, nausea, diarrhea, an episode of slurred speech and one episode of unresponsiveness that lasted for 15 to 30 seconds. As per son, patient was walking and had an episode where his legs gave out and patient fell. Patient did not hit his head. Currently, patient reports of new onset of lower back pain. He has chronic cough. Otherwise, he denies chest pain or shortness of breath. PMD: [place]. [place] Past Medical History Reviewed: Historical Data, Nursing Documentation, Vital Signs Vital Signs: Last Vital Signs Temp 97.8 F 12/26/18 14:39 Pulse 88 12/26/18 14:39 Resp 18 12/26/18 14:39 BP 121/77 12/26/18 14:39 Pulse Ox 99 12/26/18 14:39 - Medical History PMH: Anxiety, Arthritis, Diabetes, HTN Denies: Chronic Kidney Disease - Family History Family History: States: Unknown Family Hx - Home Medications Home Medications: Ambulatory Orders Medication Instructions Recorded Cilostazol [Pletal] 100 mg PO Q12 01/20/18 Glimepiride [Amaryl] 4 mg PO BID 01/20/18 Pentoxifylline 400 mg PO TID 01/20/18 SITagliptin [Januvia] 50 mg PO DAILY 01/20/18 Alprazolam [Xanax] 0.5 mg PO HS 12/26/18 Aspirin [Ecotrin] 81 mg PO DAILY 12/26/18 Atorvastatin [Lipitor] 20 mg PO DAILY 12/26/18 Esomeprazole Magnesium [Nexium] 40 mg PO DAILY 12/26/18 Fluticasone/Vilanterol [Breo 1 puff IH DAILY 12/26/18 Ellipta 200-25 Mcg INH] Meclizine [Meclizine*] 25 mg PO Q12 12/26/18 - Allergies Allergies/Adverse Reactions: Allergies Allergy/AdvReac Type Severity Reaction Status Date / Time No Known Allergies Allergy Verified 01/20/18 10:19 Review of Systems ROS Statement: Except As Marked, All Systems Reviewed And Found Negative Cardiovascular: Negative for: Chest Pain Respiratory: Negative for: Shortness of Breath Gastrointestinal: Positive for: Nausea, Diarrhea Musculoskeletal: Positive for: Back Pain Neurological: Positive for: Dizziness, Other (decreased strength; one episode of unresponsiveness that lasted for 15 to 30 seconds) Physical Exam - Reviewed Nursing Documentation Reviewed: Yes Vital Signs Reviewed: Yes - Physical Exam Appears: Positive for: Well (elderly ), Non-toxic, No Acute Distress Head Exam: Positive for: ATRAUMATIC, NORMAL INSPECTION, NORMOCEPHALIC Skin: Positive for: Normal Color, Warm, DRY Eye Exam: Positive for: Normal appearance, EOMI, PERRL, Other (increased lacrimation of Left eye (chronic due to removal of lacrimal duct)) ENT: Positive for: Normal ENT Inspection Neck: Positive for: Normal, Painless ROM, Supple. Negative for: Decreased ROM Cardiovascular/Chest: Positive for: Regular Rate, Rhythm. Negative for: Murmur Respiratory: Positive for: Normal Breath Sounds. Negative for: Respiratory Distress Gastrointestinal/Abdominal: Positive for: Normal Exam, Soft. Negative for: Tenderness Back: Positive for: Normal Inspection. Negative for: L CVA Tenderness, R CVA Tenderness Extremity: Positive for: Normal ROM. Negative for: Tenderness, Pedal Edema, Deformity Neurological/Psych: Positive for: Awake, Alert, Normal Tone, Oriented (X3) - Laboratory Results Result Diagrams: 12/26/18 15:30 12/26/18 15:30 Lab Results: pO2 27 mm/Hg (30-55) L 12/26/18 15:21 VBG pH 7.34 (7.32-7.43) 12/26/18 15:21 VBG pCO2 46 mmHg (40-60) 12/26/18 15:21 VBG HCO3 22.5 mmol/L 12/26/18 15:21 VBG Total CO2 26.2 mmol/L (22-28) 12/26/18 15:21 VBG O2 Sat (Calc) 51.4 % (40-65) 12/26/18 15:21 VBG Base Excess -1.3 mmol/L (0.0-2.0) L 12/26/18 15:21 VBG Potassium 3.9 mmol/L (3.6-5.2) 12/26/18 15:21 Sodium 136.0 mmol/L (132-148) 12/26/18 15:21 Chloride 105.0 mmol/L (98-107) 12/26/18 15:21 Glucose 153 mg/dL (75-110) H 12/26/18 15:21 Lactate 1.8 mmol/L (0.7-2.1) 12/26/18 15:21 FiO2 21.0 % 12/26/18 15:21 Troponin I 0.0210 ng/mL (0.00-0.120) 12/26/18 15:30 NT-Pro-B Natriuret Pep 382 pg/ml (0-900) 12/26/18 15:30 Total Bilirubin 0.7 mg/dl (0.2-1.3) 12/26/18 15:30 AST 40 U/L (17-59) 12/26/18 15:30 ALT 24 U/L (21-72) 12/26/18 15:30 Alkaline Phosphatase 63 U/L (38-126) 12/26/18 15:30 Total Protein 7.5 G/DL (6.3-8.2) 12/26/18 15:30 Albumin 4.1 g/dL (3.5-5.0) 12/26/18 15:30 Globulin 3.4 gm/dL (2.2-3.9) 12/26/18 15:30 Albumin/Globulin Ratio 1.2 (1.0-2.1) 12/26/18 15:30 Lipase 14 U/L (23-300) L 12/26/18 15:30 Urine Color Yellow (YELLOW) 12/26/18 15:41 Urine Clarity Slighty-cloudy (Clear) 12/26/18 15:41 Urine pH 5.0 (5.0-8.0) 12/26/18 15:41 Ur Specific [place] 1.018 (1.003-1.030) 12/26/18 15:41 Urine Protein 30 mg/dL (NEGATIVE) 12/26/18 15:41 Urine Glucose (UA) Neg mg/dL (NEGATIVE) 12/26/18 15:41 Urine Ketones Negative mg/dL (NEGATIVE) 12/26/18 15:41 Urine Blood Small (NEGATIVE) 12/26/18 15:41 Urine Nitrate Negative (NEGATIVE) 12/26/18 15:41 Urine Bilirubin Negative (NEGATIVE) 12/26/18 15:41 Urine Urobilinogen 0.2-1.0 mg/dL (0.2-1.0) 12/26/18 15:41 Ur Leukocyte Esterase Neg Nick/uL (Negative) 12/26/18 15:41 Urine RBC (Auto) 7 /hpf (0-3) H 12/26/18 15:41 Urine Microscopic WBC 1 /hpf (0-5) 12/26/18 15:41 Ur Squamous Epith Cells 1 /hpf (0-5) 12/26/18 15:41 Hyaline Casts 3-5 /hpf (0-2) H 12/26/18 15:41 - ECG O2 Sat by Pulse Oximetry: 99 (RA) Pulse Ox Interpretation: Normal Medical Decision Making Medical Decision Making: Time: 1514 A/P: workup for increased weakness, change in mental status with slurred speech r/o intracranial process vs infectious process. Will order, CT Abdomen Pelvis Contrast due to diarrhea and worsening abdominal pain, labs, and admission to Dr. Sullivan Plan: Venous Blood Gas shock panel Abdomen pelvis PO & IV contrast CT BNP CMP Lipase Troponin CBC w/ differential PTT Prothrombin time Chest portable [RAD] Iohexol 50ml Blood culture Stool culture Influenza A B UA Reevaluation 1556 CXR FINDINGS: LUNGS: Chronic interstitial lung disease unchanged. PLEURA: No significant pleural effusion identified, no pneumothorax apparent. CARDIOVASCULAR: Atherosclerotic calcifications identified primarily aortic arch. No radiographic findings to suggest acute or significant cardiovascular disease. OSSEOUS STRUCTURES: No significant abnormalities. VISUALIZED UPPER ABDOMEN: Normal. OTHER FINDINGS: None. IMPRESSION: No active disease. No significant interval change compared to the prior examination(s). [address] Sullivan at this time for admission . Consult placed to neurology 1642 PROCEDURE: CT HEAD WITHOUT CONTRAST. HISTORY: weakness, AMS COMPARISON: Noncontrast head CT 06/23/2013. Brain MRI 01/23/2018. TECHNIQUE: Axial computed tomography images were obtained through the head/brain without intravenous contrast. Radiation dose: Total exam DLP = 803.11 mGy-cm. This CT exam was performed using one or more of the following dose reduction techniques: Automated exposure control, adjustment of the mA and/or kV according to patient size, and/or use of iterative reconstruction technique. FINDINGS: HEMORRHAGE: No intracranial hemorrhage. BRAIN: Good corticomedullary differentiation is seen. Reiterated diffuse cerebral atrophy and chronic microangiopathy. No suspicious extra-axial fluid collection is identified and the midline brain anatomy appears grossly nonfocal as imaged. No mass effect identified. VENTRICLES: Unremarkable. No hydrocephalus. CALVARIUM: Unremarkable. PARANASAL SINUSES: Unremarkable as visualized. No significant inflammatory changes. MASTOID AIR CELLS: Unremarkable as visualized. No inflammatory changes. OTHER FINDINGS: None. IMPRESSION: Stable age related neuro degenerative changes as compared prior CT 06/23/2013. No acute findings as per standard CT criteria. ------- Scribe Attestation: Documented by Marcus Cotton, acting as a scribe for Caitlin Abad MD Provider Scribe Attestation: All medical record entries made by the Scribe were at my direction and personally dictated by me. I have reviewed the chart and agree that the record accurately reflects my personal performance of the history, physical exam, medical decision making, and the department course for this patient. I have also personally directed, reviewed, and agree with the discharge instructions and d isposition. Time 1750 CT brain shows only chronic age related changes. Spoke with neurologist (Dr. Maher) for consult and she recommends MRI of the brain with contrast and loading dose of Keppra as the transient AMS and unresponsiveness may be seizure activity. Pending CT abd/pelvis. Disposition - Clinical Impression Clinical Impression: Altered mental status - Patient ED Disposition Is Patient to be Admitted: Yes - Disposition Disposition Time: 16:37 Condition: STABLE
[2018-12-26 17:03] LABS: INR 1.1; PROTHROMBIN TIME 12.1 Seconds (9.8-13.1)
[2018-12-26 17:06] LABS: PARTIAL THROMBOPLASTIN TIME 30.8 Seconds (25.6-37.1)
[2018-12-26] MEDS ORDERED: levETIRAcetam 1,000 MG in Sodium Chloride 0.9% 100 ML IVPB STA (17:49)
--- NOTE | 2018-12-26 18:42 | CT ---
Date of service: 12/26/2018 PROCEDURE: CT Abdomen and Pelvis with contrast HISTORY: Abdominal pain and diarrhea. COMPARISON: 01/20/2018. TECHNIQUE: Oral contrast only. Radiation dose: Total exam DLP = 671.08 mGy-cm. This CT exam was performed using one or more of the following dose reduction techniques: Automated exposure control, adjustment of the mA and/or kV according to patient size, and/or use of iterative reconstruction technique. FINDINGS: LOWER THORAX: Unremarkable. Small hiatal hernia a stable finding. LIVER: Unremarkable. No gross lesion or ductal dilatation. GALLBLADDER AND BILE DUCTS: Unremarkable. PANCREAS: Unremarkable. No gross lesion or ductal dilatation. SPLEEN: Unremarkable. ADRENALS: Unremarkable. No mass. KIDNEYS AND URETERS: Unremarkable. No hydronephrosis. No solid mass. VASCULATURE: New aorto bi-iliac stent graft identified. Stable [place] abdominal aortic aneurysm. Stable atherosclerotic/calcified disease identified. Stable position of IVC filter. BOWEL: Diverticulosis without an acute inflammatory component or other associated pathologic process. APPENDIX: A normal appendix is visualized in it's entirety. PERITONEUM: Unremarkable. No free fluid. No free air. LYMPH NODES: Unremarkable. No enlarged lymph nodes. BLADDER: Unremarkable. REPRODUCTIVE: Unremarkable. BONES: No acute fracture. OTHER FINDINGS: None. IMPRESSION: No acute or significant findings related to/ accounting for the clinical presentation. Additional benign and/or incidental findings described above. No significant interval change compared to the prior examination(s).
[2018-12-26] MEDS: Cilostazol 100 mg Tab UD PO SCH (22:16)
[2018-12-27 07:10] LABS: HEMOGLOBIN 12.8 g/dL (12.0-18.0); MEAN CELL VOLUME 95.6 fl (80.0-94.0); MEAN CORPUSCULAR HEMOGLOBIN 32.3 pg (27.0-31.0); MEAN CORPUSCULAR HGB CONC 33.7 g/dL (33.0-37.0); RBC 3.97 Mil/uL (4.40-5.90); RED CELL DISTRIBUTION WIDTH 13.6 % (11.5-14.5)
[2018-12-27 07:16] LABS: ALB/GLOB RATIO 1.2 (1.0-2.1); ALBUMIN 3.7 g/dL (3.5-5.0); CALCIUM 8.6 mg/dL (8.4-10.2)
[2018-12-27 07:45] LABS: INR 1.1
[2018-12-27 07:47] LABS: PARTIAL THROMBOPLASTIN TIME 31.7 Seconds (25.6-37.1)
[2018-12-27] MEDS ORDERED: Levalbuterol 0.63 MG/3 ML Inhal Soln UD INH SCH (08:00)
[2018-12-27] MEDS ORDERED: Ipratropium 0.02% Inhal Soln (0.5 mg/2.5 ml) UD IH SCH (08:00)
[2018-12-27] MEDS: Cilostazol 100 mg Tab UD PO SCH ×2 (10:34→21:36)
[2018-12-27] MEDS: Pantoprazole 40 mg EC Tab PO SCH (10:36)
[2018-12-27] MEDS: GlipiZIDE 10 mg SR Tab PO SCH ×2 (10:36→17:58)
--- NOTE | 2018-12-27 12:46 | CP.PCM.CON ---
History of Present Illness - History of Present Illness History of Present Illness: This renal consult called because of her abnormal kidney function and the history was taken from the medical record because the patient is not given any history 83 year old male presents to the ED with and son. Patient has had a 48 hrs of decreased strength, dizziness, nausea, diarrhea, an episode of slurred speech and one episode of unresponsiveness that lasted for 15 to 30 seconds. As per son, patient was walking and had an episode where his legs gave out and patient fell. Patient did not hit his head. Currently, patient reports of new onset of lower back pain. He has chronic cough. Otherwise, he denies chest pain or s hortness of breath. Review of Systems - Constitutional Constitutional: Malaise, Weakness. absent: Chills, Fever - EENT Nose/Mouth/Throat: absent: Epistaxis - Cardiovascular Cardiovascular: Syncope. absent: Acrocyanosis, Chest Pain, Dyspnea, Edema - Respiratory Respiratory: absent: Cough, Dyspnea, Hemoptysis - Gastrointestinal Gastrointestinal: Nausea. absent: Abdominal Pain, Bloating, Coffee Ground Emesis - Genitourinary Genitourinary: Nocturia - Musculoskeletal Musculoskeletal: Muscle Weakness. absent: Back Pain, Numbness - Integumentary Integumentary: absent: Bleeding Lesions, Wounds - Neurological Neurological: As Per HPI, Abnormal Gait, Confusion, Syncope - Psychiatric Psychiatric: absent: Anxiety - Endocrine Endocrine: Fatigue - Hematologic/Lymphatic Hematologic: absent: Easy Bleeding Past Patient History - Past Medical History & Family History Past Medical History?: Yes - Past Social History Smoking Status: Heavy Smoker > 10 Cigarettes Daily - CARDIAC Hx Hypertension: Yes - PULMONARY Hx Respiratory Disorders: Yes - NEUROLOGICAL Hx Neurological Disorder: No - HEENT Hx HEENT Problems: No - RENAL Hx Chronic Kidney Disease: No - ENDOCRINE/METABOLIC Hx Endocrine Disorders: Yes Hx Diabetes Mellitus Type 2: Yes - HEMATOLOGICAL/ONCOLOGICAL Hx Blood Disorders: No - INTEGUMENTARY Hx Dermatological Problems: No - MUSCULOSKELETAL/RHEUMATOLOGICAL Hx Arthritis: Yes - GASTROINTESTINAL Hx Gastrointestinal Disorders: No - GENITOURINARY/GYNECOLOGICAL Hx Genitourinary Disorders: No - PSYCHIATRIC Hx Anxiety: Yes - SURGICAL HISTORY Hx Surgeries: Yes Other/Comment: RLE vascular surgery Fame-Pop bypass. IVC filter. Skin Nose Ca - ANESTHESIA Hx Anesthesia: Yes Hx Anesthesia Reactions: No Hx Malignant Hyperthermia: No Has any member of the family had a problem w/ anesthesia?: No Meds Allergies/Adverse Reactions: Allergies Allergy/AdvReac Type Severity Reaction Status Date / Time No Known Allergies Allergy Verified 01/20/18 10:19 - Medications Medications: Current Medications Aspirin (Ecotrin) 81 mg PO DAILY [facility] Last Admin: 12/27/18 10:35 Dose: 81 mg Atorvastatin Calcium (Lipitor) 20 mg PO DAILY [facility] Last Admin: 12/27/18 10:36 Dose: 20 mg Cilostazol (Pletal) 100 mg PO Q12 [facility] Last Admin: 12/27/18 10:34 Dose: 100 mg Glipizide (Glucotrol Xl) 10 mg PO BID [facility] Last Admin: 12/27/18 10:36 Dose: 10 mg Ipratropium [place] (Atrovent) 0.5 mg IH RBID [facility] Levalbuterol HCl (Xopenex) 0.63 mg INH RBID [facility] Meclizine HCl (Antivert) 25 mg PO Q12 [facility] Last Admin: 12/27/18 10:35 Dose: 25 mg Pantoprazole Sodium (Protonix Ec Tab) 40 mg PO DAILY [facility] Last Admin: 12/27/18 10:36 Dose: 40 mg Pentoxifylline (Pentoxil) 400 mg PO TID [facility] Last Admin: 12/27/18 10:34 Dose: 400 mg Sitagliptin Phosphate (Januvia) 50 mg PO DAILY [facility] Last Admin: 12/27/18 10:35 Dose: 50 mg Physical Exam - Constitutional Appears: No Acute Distress - Eye Exam Eye Exam: Conjunctival injection - ENT Exam ENT Exam: Mucous Membranes Dry - Neck Exam Neck exam: Negative for: Lymphadenopathy - Respiratory Exam Respiratory Exam: NORMAL BREATHING PATTERN. absent: Chest Wall Tenderness - Cardiovascular Exam Cardiovascular Exam: absent: Gallop, JVD, Rubs - GI/Abdominal Exam GI & Abdominal Exam: Normal Bowel Sounds. absent: Guarding - Extremities Exam Extremities exam: Negative for: calf tenderness - Back Exam Back exam: absent: CVA tenderness (L), CVA tenderness (R) - Neurological Exam Neurological exam: Alert Results - Vital Signs Recent Vital Signs: Last Vital Signs Temp 97.6 F 12/27/18 07:59 Pulse 90 12/27/18 07:59 Resp 20 12/27/18 07:59 BP 107/67 12/27/18 07:59 Pulse Ox 93 L 12/27/18 07:59 - Labs Result Diagrams: 12/27/18 06:45 12/27/18 06:45 Labs: Laboratory Results - last 24 hr 12/26/18 12/26/18 12/26/18 14:54 15:21 15:30 WBC RBC Hgb Hct MCV MCH MCHC RDW Plt Count MPV Neut % (Auto) Lymph % (Auto) [place] % (Auto) Eos % (Auto) Baso % (Auto) Neut # (Auto) Lymph # (Auto) [place] # (Auto) Eos # (Auto) Baso # (Auto) PT INR APTT pO2 27 L VBG pH 7.34 VBG pCO2 46 VBG HCO3 22.5 VBG Total CO2 26.2 VBG O2 Sat (Calc) 51.4 VBG Base Excess -1.3 L VBG Potassium 3.9 Sodium 136.0 137 Chloride 105.0 104 Glucose 153 H Lactate 1.8 FiO2 21.0 Potassium 4.3 Carbon Dioxide 21 L Anion Gap 16 BUN 43 H Creatinine 1.7 H Est GFR ( Amer) 47 Est GFR (Non-Af Amer) 38 POC Glucose (mg/dL) 166 H Random Glucose 151 H Hemoglobin A1c Calcium 8.4 Phosphorus Total Bilirubin 0.7 AST 40 ALT 24 Alkaline Phosphatase 63 Troponin I 0.0210 NT-Pro-B Natriuret Pep 382 Total Protein 7.5 Albumin 4.1 Globulin 3.4 Albumin/Globulin Ratio 1.2 Triglycerides Cholesterol LDL Cholesterol Direct HDL Cholesterol Lipase 14 L Thyroxine (T4) TSH 3rd Generation Venous Blood Potassium 3.9 Urine Color Urine Clarity Urine pH Ur Specific [place] Urine Protein Urine Glucose (UA) Urine Ketones Urine Blood Urine Nitrate Urine Bilirubin Urine Urobilinogen Ur Leukocyte Esterase Urine RBC (Auto) Urine Microscopic WBC Ur Squamous Epith Cells Hyaline Casts Influenza Typ A,B (EIA) 12/26/18 12/26/18 12/26/18 15:30 15:41 15:41 WBC 5.7 RBC 4.26 L Hgb 13.6 Hct 41.7 MCV 97.8 H MCH 32.0 H MCHC 32.7 L RDW 14.2 Plt Count 156 MPV 8.5 Neut % (Auto) 72.1 Lymph % (Auto) 15.7 L [place] % (Auto) 10.4 H Eos % (Auto) 1.5 Baso % (Auto) 0.3 Neut # (Auto) 4.1 Lymph # (Auto) 0.9 L [place] # (Auto) 0.6 Eos # (Auto) 0.1 Baso # (Auto) 0.0 PT INR APTT pO2 VBG pH VBG pCO2 VBG HCO3 VBG Total CO2 VBG O2 Sat (Calc) VBG Base Excess VBG Potassium Sodium Chloride Glucose Lactate FiO2 Potassium Carbon Dioxide Anion Gap BUN Creatinine Est GFR ( Amer) Est GFR (Non-Af Amer) POC Glucose (mg/dL) Random Glucose Hemoglobin A1c Calcium Phosphorus Total Bilirubin AST ALT Alkaline Phosphatase Troponin I NT-Pro-B Natriuret Pep Total Protein Albumin Globulin Albumin/Globulin Ratio Triglycerides Cholesterol LDL Cholesterol Direct HDL Cholesterol Lipase Thyroxine (T4) TSH 3rd Generation Venous Blood Potassium Urine Color Yellow Urine Clarity Slighty-cloudy Urine pH 5.0 Ur Specific [place] 1.018 Urine Protein 30 Urine Glucose (UA) Neg Urine Ketones Negative Urine Blood Small Urine Nitrate Negative Urine Bilirubin Negative Urine Urobilinogen 0.2-1.0 Ur Leukocyte Esterase Neg Urine RBC (Auto) 7 H Urine Microscopic WBC 1 Ur Squamous Epith Cells 1 Hyaline Casts 3-5 H Influenza Typ A,B (EIA) Negative for flu a/b 12/26/18 12/26/18 12/27/18 16:33 21:32 05:42 WBC RBC Hgb Hct MCV MCH MCHC RDW Plt Count MPV Neut % (Auto) Lymph % (Auto) [place] % (Auto) Eos % (Auto) Baso % (Auto) Neut # (Auto) Lymph # (Auto) [place] # (Auto) Eos # (Auto) Baso # (Auto) PT 12.1 INR 1.1 APTT 30.8 pO2 VBG pH VBG pCO2 VBG HCO3 VBG Total CO2 VBG O2 Sat (Calc) VBG Base Excess VBG Potassium Sodium Chloride Glucose Lactate FiO2 Potassium Carbon Dioxide Anion Gap BUN Creatinine Est GFR ( Amer) Est GFR (Non-Af Amer) POC Glucose (mg/dL) 92 156 H Random Glucose Hemoglobin A1c Calcium Phosphorus Total Bilirubin AST ALT Alkaline Phosphatase Troponin I NT-Pro-B Natriuret Pep Total Protein Albumin Globulin Albumin/Globulin Ratio Triglycerides Cholesterol LDL Cholesterol Direct HDL Cholesterol Lipase Thyroxine (T4) TSH 3rd Generation Venous Blood Potassium Urine Color Urine Clarity Urine pH Ur Specific [place] Urine Protein Urine Glucose (UA) Urine Ketones Urine Blood Urine Nitrate Urine Bilirubin Urine Urobilinogen Ur Leukocyte Esterase Urine RBC (Auto) Urine Microscopic WBC Ur Squamous Epith Cells Hyaline Casts Influenza Typ A,B (EIA) 12/27/18 12/27/18 12/27/18 06:45 06:45 06:45 WBC 5.0 RBC 3.97 L Hgb 12.8 Hct 38.0 MCV 95.6 H D MCH 32.3 H MCHC 33.7 RDW 13.6 Plt Count 151 MPV Neut % (Auto) Lymph % (Auto) [place] % (Auto) Eos % (Auto) Baso % (Auto) Neut # (Auto) Lymph # (Auto) [place] # (Auto) Eos # (Auto) Baso # (Auto) PT INR APTT pO2 VBG pH VBG pCO2 VBG HCO3 VBG Total CO2 VBG O2 Sat (Calc) VBG Base Excess VBG Potassium Sodium 135 Chloride 103 Glucose Lactate FiO2 Potassium 4.2 Carbon Dioxide 25 Anion Gap 11 BUN 40 H Creatinine 1.5 Est GFR ( Amer) 54 Est GFR (Non-Af Amer) 44 POC Glucose (mg/dL) Random Glucose 137 H Hemoglobin A1c 6.8 H Calcium 8.6 Phosphorus Total Bilirubin 0.6 AST 32 ALT 27 Alkaline Phosphatase 58 Troponin I NT-Pro-B Natriuret Pep Total Protein 6.7 Albumin 3.7 Globulin 3.0 Albumin/Globulin Ratio 1.2 Triglycerides 158 H Cholesterol 134 LDL Cholesterol Direct 64 HDL Cholesterol 38 Lipase Thyroxine (T4) 6.39 TSH 3rd Generation 1.09 Venous Blood Potassium Urine Color Urine Clarity Urine pH Ur Specific [place] Urine Protein Urine Glucose (UA) Urine Ketones Urine Blood Urine Nitrate Urine Bilirubin Urine Urobilinogen Ur Leukocyte Esterase Urine RBC (Auto) Urine Microscopic WBC Ur Squamous Epith Cells Hyaline Casts Influenza Typ A,B (EIA) 12/27/18 12/27/18 12/27/18 06:45 09:01 11:07 WBC RBC Hgb Hct MCV MCH MCHC RDW Plt Count MPV Neut % (Auto) Lymph % (Auto) [place] % (Auto) Eos % (Auto) Baso % (Auto) Neut # (Auto) Lymph # (Auto) [place] # (Auto) Eos # (Auto) Baso # (Auto) PT 12.0 INR 1.1 APTT 31.7 pO2 VBG pH VBG pCO2 VBG HCO3 VBG Total CO2 VBG O2 Sat (Calc) VBG Base Excess VBG Potassium Sodium Chloride Glucose Lactate FiO2 Potassium Carbon Dioxide Anion Gap BUN Creatinine Est GFR ( Amer) Est GFR (Non-Af Amer) POC Glucose (mg/dL) 187 H Random Glucose Hemoglobin A1c Calcium Phosphorus 3.9 Total Bilirubin AST ALT Alkaline Phosphatase Troponin I NT-Pro-B Natriuret Pep Total Protein Albumin Globulin Albumin/Globulin Ratio Triglycerides Cholesterol LDL Cholesterol Direct HDL Cholesterol Lipase Thyroxine (T4) TSH 3rd Generation Venous Blood Potassium Urine Color Urine Clarity Urine pH Ur Specific [place] Urine Protein Urine Glucose (UA) Urine Ketones Urine Blood Urine Nitrate Urine Bilirubin Urine Urobilinogen Ur Leukocyte Esterase Urine RBC (Auto) Urine Microscopic WBC Ur Squamous Epith Cells Hyaline Casts Influenza Typ A,B (EIA) Assessment & Plan (1) Altered mental status Status: Acute (2) History of endovascular stent graft for abdominal aortic aneurysm (AAA) Status: Acute Priority: Medium (3) History of lacunar cerebrovascular accident (CVA) Status: Chronic Priority: Medium (4) LUZ (acute kidney injury) Assessment and Plan: Rule out acute kidney injury superimposed perhaps on underlying chronic kidney disease stage II-III History of diabetes History of hypertension Patient was admitted with altered mental status. Commendation Gentle hydration Spot urine for protein and creatinine Serum phosphorus Repeat BMP tomorrow Head CT: Age related neuro degenerative changes. Carotid/Vertebral U-S: No evidence of hemodynamically stenosis. CXR: No active disease. Abd/Pelv CT: Diverticulosis, stable aortic abdominal aneurysm, rest of exam unremarkable. Renal U-S: No hydronephrosis or nephrolithiasis, solitary simple cysts in each kidney. Chest CT: Pulmonary Fibrosis. Status: Acute
--- NOTE | 2018-12-27 13:19 | US ---
Date of service: 12/27/2018 PROCEDURE: Duplex ultrasound of the carotid and vertebral arteries. HISTORY: MD order COMPARISON: None available. TECHNIQUE: Grayscale and duplex Doppler evaluation of the cervical carotid and vertebral arteries were performed. The common carotid, carotid bifurcations and cervical ICA and proximal ECA were evaluated. The vertebral arteries were evaluated for gross patency and direction. FINDINGS: There are soft and calcified atherosclerotic plaques in the carotid bulbs and proximal internal carotid arteries. RIGHT CAROTID ARTERIES: Common Carotid Artery: Normal. Maximal flow velocity of 62.5 cm/s. Carotid Bifurcation: Normal. Internal Carotid Artery:Normal. Maximal flow velocity of 93.5 cm/s. External Carotid Artery (proximal branches): Normal. Maximal flow velocity of 110.8 cm/s. ICA/CCA Ratio: 1.5 LEFT CAROTID ARTERIES: Common Carotid Artery: Normal. Maximal flow velocity of 60.3 cm/s. Carotid Bifurcation: Normal. Internal Carotid Artery:Normal. Maximal flow velocity of 87.1 cm/s. External Carotid Artery (proximal branches): Normal. Maximal flow velocity of 105.0 cm/s. ICA/CCA Ratio: 1.4 VERTEBRAL ARTERIES: Right Vertebral Artery: Patent. Antegrade flow. Left Vertebral Artery: Patent. Antegrade flow. OTHER FINDINGS: No atherosclerotic calcification present IMPRESSION: 1. No evidence of hemodynamically significant stenosis in the internal carotid arteries by peak systolic velocity criteria. 2. Patent bilateral vertebral arteries with antegrade flow.
--- NOTE | 2018-12-27 13:22 | US ---
Date of service: 12/27/2018 PROCEDURE: Ultrasound of the Kidneys HISTORY: MD order COMPARISON: None available. TECHNIQUE: Grayscale imaging was performed. FINDINGS: RIGHT KIDNEY: Measures: 10.3 cm. Normal in size, contour and echogenicity. No stone, solid mass lesion or hydronephrosis visualized. There is a 3.0 x 2.9 x 2.4 cm simple cyst in the lower pole. LEFT KIDNEY: Measures: 9.5 cm. Normal in size, contour and echogenicity. No stone, solid mass lesion or hydronephrosis visualized. There is a 1.4 x 0.7 x 0.8 cm simple cyst in the interpolar region. OTHER FINDINGS: None. IMPRESSION: No hydronephrosis or nephrolithiasis. Solitary simple cysts in each kidney, the larger in the right lower pole measures 3.0 cm.
[2018-12-27] MEDS ORDERED: Promethazine/Cod 6.25mg-10mg/5ml Syr UD PO PRN (14:01)
--- NOTE | 2018-12-27 14:04 | CP.PCM.HP ---
History of Present Illness - History of Present Illness History of Present Illness: 83 y/o M,with multiple chronic medical conditions including Hx DVT, IVC filter RLE 2003, COPD, DMII, O/a, Anxiety. Pt was brought by family to [facility] on 12/27/18 to be evaluated for AMS, from 2 days [employer], increased on DOA, associated to slurry speech, one episode of unresponsiveness lasting 15-30 seconds, also dizziness and fall while at home, 2nd to decreased strengths in lower extremities. Worsening symptoms: Nausea/vomiting NBNB /diarrhea, increased anxiety, heavy smoker. Aggravated factor: Standing-up, walking, ADL's. No: Head contusion, or pain from fall, fever, chills, abdominal pain, urinary symptoms, SOB, cough, CP, palpitations, sick contact, recent travel out of [facility]. Head CT: Age related neuro degenerative changes. Carotid/Vertebral U-S: No evidence of hemodynamically stenosis. CXR: No active disease. Abd/Pelv CT: Diverticulosis, stable aortic abdominal aneurysm, rest of exam unr emarkable. Renal U-S: No hydronephrosis or nephrolithiasis, solitary simple cysts in each kidney. Chest CT: Pulmonary Fibrosis. Present on Admission - Present on Admission Any Indicators Present on Admission: Yes History of DVT/PE: Yes Review of Systems - Review of Systems Systems not reviewed;Unavailable: Acuity of Condition, Altered Mental Status Past Patient History - Past Medical History & Family History Past Medical History?: Yes Pertinent Family History: Father and Mother: Heart disease( diseased). - Past Social History Smoking Status: Heavy Smoker > 10 Cigarettes Daily Alcohol: None Drugs: Denies Home Situation {Lives}: With Family - CARDIAC Hx Cardiac Disorders: Yes Hx Hypercholesterolemia: Yes Hx Hypertension: Yes Hx Peripheral Vascular Disease: Yes - PULMONARY Hx Respiratory Disorders: Yes Hx Chronic Obstructive Pulmonary Disease (COPD): Yes - NEUROLOGICAL Hx Neurological Disorder: No - HEENT Hx HEENT Problems: No - RENAL Hx Chronic Kidney Disease: No - ENDOCRINE/METABOLIC Hx Endocrine Disorders: Yes Hx Diabetes Mellitus Type 2: Yes - HEMATOLOGICAL/ONCOLOGICAL Hx Blood Disorders: No 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 IVC filter. Skin Nose Ca - ANESTHESIA Hx Anesthesia: Yes Hx Anesthesia Reactions: No Hx Malignant Hyperthermia: No Has any member of the family had a problem w/ anesthesia?: No Meds Home Medications: Home Medication List Medication Instructions Recorded Confirmed Type Meclizine [Meclizine*] 25 mg PO TID #0 12/29/18 12/26/18 Rx Allergies/Adverse Reactions: Allergies Allergy/AdvReac Type Severity Reaction Status Date / Time No Known Allergies Allergy Verified 01/20/18 10:19 Physical Exam - Head Exam Head Exam: NORMAL INSPECTION - Eye Exam Eye Exam: PERRL - ENT Exam ENT Exam: Normal Exam - Neck Exam Neck exam: Positive for: Normal Inspection - Respiratory Exam Respiratory Exam: Decreased Breath Sounds (at bases) - Cardiovascular Exam Cardiovascular Exam: REGULAR RHYTHM - GI/Abdominal Exam GI & Abdominal Exam: Normal Bowel Sounds, Soft - Extremities Exam Extremities exam: Positive for: normal inspection - Back Exam Back exam: tenderness (L-S) - Neurological Exam Additional comments: forgetful, confused, slurry speech. - Psychiatric Exam Psychiatric exam: Anxious - Skin Skin Exam: Warm Results - Vital Signs Recent Vital Signs: Last Vital Signs Temp 97.6 F 12/27/18 07:59 Pulse 90 12/27/18 07:59 Resp 20 12/27/18 07:59 BP 107/67 12/27/18 07:59 Pulse Ox 93 L 12/27/18 07:59 reviewed J.PEnrique - Labs Result Diagrams: 12/28/18 11:30 12/28/18 11:30 Labs: Laboratory Results - last 24 hr 12/26/18 12/26/18 12/26/18 14:54 15:21 15:30 WBC RBC Hgb Hct MCV MCH MCHC RDW Plt Count MPV Neut % (Auto) Lymph % (Auto) Murray % (Auto) Eos % (Auto) Baso % (Auto) Neut # (Auto) Lymph # (Auto) Murray # (Auto) Eos # (Auto) Baso # (Auto) PT INR APTT pO2 27 L VBG pH 7.34 VBG pCO2 46 VBG HCO3 22.5 VBG Total CO2 26.2 VBG O2 Sat (Calc) 51.4 VBG Base Excess -1.3 L VBG Potassium 3.9 Sodium 136.0 137 Chloride 105.0 104 Glucose 153 H Lactate 1.8 FiO2 21.0 Potassium 4.3 Carbon Dioxide 21 L Anion Gap 16 BUN 43 H Creatinine 1.7 H Est GFR ( Amer) 47 Est GFR (Non-Af Amer) 38 POC Glucose (mg/dL) 166 H Random Glucose 151 H Hemoglobin A1c Calcium 8.4 Phosphorus Total Bilirubin 0.7 AST 40 ALT 24 Alkaline Phosphatase 63 Troponin I 0.0210 NT-Pro-B Natriuret Pep 382 Total Protein 7.5 Albumin 4.1 Globulin 3.4 Albumin/Globulin Ratio 1.2 Triglycerides Cholesterol LDL Cholesterol Direct HDL Cholesterol Lipase 14 L Thyroxine (T4) TSH 3rd Generation Venous Blood Potassium 3.9 Urine Color Urine Clarity Urine pH Ur Specific Animas Urine Protein Urine Glucose (UA) Urine Ketones Urine Blood Urine Nitrate Urine Bilirubin Urine Urobilinogen Ur Leukocyte Esterase Urine RBC (Auto) Urine Microscopic WBC Ur Squamous Epith Cells Hyaline Casts Influenza Typ A,B (EIA) 12/26/18 12/26/18 12/26/18 15:30 15:41 15:41 WBC 5.7 RBC 4.26 L Hgb 13.6 Hct 41.7 MCV 97.8 H MCH 32.0 H MCHC 32.7 L RDW 14.2 Plt Count 156 MPV 8.5 Neut % (Auto) 72.1 Lymph % (Auto) 15.7 L Murray % (Auto) 10.4 H Eos % (Auto) 1.5 Baso % (Auto) 0.3 Neut # (Auto) 4.1 Lymph # (Auto) 0.9 L Murray # (Auto) 0.6 Eos # (Auto) 0.1 Baso # (Auto) 0.0 PT INR APTT pO2 VBG pH VBG pCO2 VBG HCO3 VBG Total CO2 VBG O2 Sat (Calc) VBG Base Excess VBG Potassium Sodium Chloride Glucose Lactate FiO2 Potassium Carbon Dioxide Anion Gap BUN Creatinine Est GFR ( Amer) Est GFR (Non-Af Amer) POC Glucose (mg/dL) Random Glucose Hemoglobin A1c Calcium Phosphorus Total Bilirubin AST ALT Alkaline Phosphatase Troponin I NT-Pro-B Natriuret Pep Total Protein Albumin Globulin Albumin/Globulin Ratio Triglycerides Cholesterol LDL Cholesterol Direct HDL Cholesterol Lipase Thyroxine (T4) TSH 3rd Generation Venous Blood Potassium Urine Color Yellow Urine Clarity Slighty-cloudy Urine pH 5.0 Ur Specific Animas 1.018 Urine Protein 30 Urine Glucose (UA) Neg Urine Ketones Negative Urine Blood Small Urine Nitrate Negative Urine Bilirubin Negative Urine Urobilinogen 0.2-1.0 Ur Leukocyte Esterase Neg Urine RBC (Auto) 7 H Urine Microscopic WBC 1 Ur Squamous Epith Cells 1 Hyaline Casts 3-5 H Influenza Typ A,B (EIA) Negative for flu a/b 12/26/18 12/26/18 12/27/18 16:33 21:32 05:42 WBC RBC Hgb Hct MCV MCH MCHC RDW Plt Count MPV Neut % (Auto) Lymph % (Auto) Murray % (Auto) Eos % (Auto) Baso % (Auto) Neut # (Auto) Lymph # (Auto) Murray # (Auto) Eos # (Auto) Baso # (Auto) PT 12.1 INR 1.1 APTT 30.8 pO2 VBG pH VBG pCO2 VBG HCO3 VBG Total CO2 VBG O2 Sat (Calc) VBG Base Excess VBG Potassium Sodium Chloride Glucose Lactate FiO2 Potassium Carbon Dioxide Anion Gap BUN Creatinine Est GFR ( Amer) Est GFR (Non-Af Amer) POC Glucose (mg/dL) 92 156 H Random Glucose Hemoglobin A1c Calcium Phosphorus Total Bilirubin AST ALT Alkaline Phosphatase Troponin I NT-Pro-B Natriuret Pep Total Protein Albumin Globulin Albumin/Globulin Ratio Triglycerides Cholesterol LDL Cholesterol Direct HDL Cholesterol Lipase Thyroxine (T4) TSH 3rd Generation Venous Blood Potassium Urine Color Urine Clarity Urine pH Ur Specific Animas Urine Protein Urine Glucose (UA) Urine Ketones Urine Blood Urine Nitrate Urine Bilirubin Urine Urobilinogen Ur Leukocyte Esterase Urine RBC (Auto) Urine Microscopic WBC Ur Squamous Epith Cells Hyaline Casts Influenza Typ A,B (EIA) 12/27/18 12/27/18 12/27/18 06:45 06:45 06:45 WBC 5.0 RBC 3.97 L Hgb 12.8 Hct 38.0 MCV 95.6 H D MCH 32.3 H MCHC 33.7 RDW 13.6 Plt Count 151 MPV Neut % (Auto) Lymph % (Auto) Murray % (Auto) Eos % (Auto) Baso % (Auto) Neut # (Auto) Lymph # (Auto) Murray # (Auto) Eos # (Auto) Baso # (Auto) PT INR APTT pO2 VBG pH VBG pCO2 VBG HCO3 VBG Total CO2 VBG O2 Sat (Calc) VBG Base Excess VBG Potassium Sodium 135 Chloride 103 Glucose Lactate FiO2 Potassium 4.2 Carbon Dioxide 25 Anion Gap 11 BUN 40 H Creatinine 1.5 Est GFR ( Amer) 54 Est GFR (Non-Af Amer) 44 POC Glucose (mg/dL) Random Glucose 137 H Hemoglobin A1c 6.8 H Calcium 8.6 Phosphorus Total Bilirubin 0.6 AST 32 ALT 27 Alkaline Phosphatase 58 Troponin I NT-Pro-B Natriuret Pep Total Protein 6.7 Albumin 3.7 Globulin 3.0 Albumin/Globulin Ratio 1.2 Triglycerides 158 H Cholesterol 134 LDL Cholesterol Direct 64 HDL Cholesterol 38 Lipase Thyroxine (T4) 6.39 TSH 3rd Generation 1.09 Venous Blood Potassium Urine Color Urine Clarity Urine pH Ur Specific Animas Urine Protein Urine Glucose (UA) Urine Ketones Urine Blood Urine Nitrate Urine Bilirubin Urine Urobilinogen Ur Leukocyte Esterase Urine RBC (Auto) Urine Microscopic WBC Ur Squamous Epith Cells Hyaline Casts Influenza Typ A,B (EIA) 12/27/18 12/27/18 12/27/18 06:45 09:01 11:07 WBC RBC Hgb Hct MCV MCH MCHC RDW Plt Count MPV Neut % (Auto) Lymph % (Auto) Murray % (Auto) Eos % (Auto) Baso % (Auto) Neut # (Auto) Lymph # (Auto) Murray # (Auto) Eos # (Auto) Baso # (Auto) PT 12.0 INR 1.1 APTT 31.7 pO2 VBG pH VBG pCO2 VBG HCO3 VBG Total CO2 VBG O2 Sat (Calc) VBG Base Excess VBG Potassium Sodium Chloride Glucose Lactate FiO2 Potassium Carbon Dioxide Anion Gap BUN Creatinine Est GFR ( Amer) Est GFR (Non-Af Amer) POC Glucose (mg/dL) 187 H Random Glucose Hemoglobin A1c Calcium Phosphorus 3.9 Total Bilirubin AST ALT Alkaline Phosphatase Troponin I NT-Pro-B Natriuret Pep Total Protein Albumin Globulin Albumin/Globulin Ratio Triglycerides Cholesterol LDL Cholesterol Direct HDL Cholesterol Lipase Thyroxine (T4) TSH 3rd Generation Venous Blood Potassium Urine Color Urine Clarity Urine pH Ur Specific Animas Urine Protein Urine Glucose (UA) Urine Ketones Urine Blood Urine Nitrate Urine Bilirubin Urine Urobilinogen Ur Leukocyte Esterase Urine RBC (Auto) Urine Microscopic WBC Ur Squamous Epith Cells Hyaline Casts Influenza Typ A,B (EIA) reviewed J.P. - EKG Data EKG comments: reviewed J.P. - Imaging and Cardiology Chest x-ray Status: Report reviewed by me (Gail) CT scan - abdomen Status: Report reviewed by me (Gail) CT scan - pelvis Status: Report reviewed by me (GilbertoPEnrique) CT scan - chest Status: Report reviewed by me (Gail) CT scan - head Status: Report reviewed by me (GilbertoPEnrique) Renal U-S Status: Report reviewed by me Carotid-Vertebral U-S Status: Report reviewed by me Assessment & Plan (1) Altered mental status Status: Acute Priority: High (2) DMII (diabetes mellitus, type 2) Status: Chronic Priority: High (3) CKD (chronic kidney disease), stage II Status: Chronic Priority: High (4) HTN (hypertension) Status: Chronic Priority: Low (5) COPD (chronic obstructive pulmonary disease) Status: Chronic Priority: Medium (6) History of endovascular stent graft for abdominal aortic aneurysm (AAA) Status: Acute Priority: Medium (7) Anxiety Status: Chronic Priority: High (8) History of lacunar cerebrovascular accident (CVA) Status: Chronic Priority: Medium - Assessment and Plan (Free Text) Plan: F/U Echo, Blood C-S, U C-S, Sputum C-S, Ova & parasite, Brain MRI, continue Xopenex, Meclizine, ASA, Lipitor, Pletal, Januvia, Glucotro XL and rest of Tx. PT, and speech eval. Nephrology consult appreciated, Neurology consult. - Date & Time Date: 12/27/18 Time: 13:50
[2018-12-27] MEDS: Levalbuterol 0.63 MG/3 ML Inhal Soln UD INH SCH ×2 (15:28→19:41)
[2018-12-27] MEDS: Ipratropium 0.02% Inhal Soln (0.5 mg/2.5 ml) UD IH SCH ×2 (15:28→19:41)
--- NOTE | 2018-12-27 15:47 | CT ---
Date of service: 12/27/2018 PROCEDURE: CT Chest without contrast HISTORY: COPD, cough COMPARISON: None available. TECHNIQUE: Contiguous axial images were obtained through the chest without intravenous contrast enhancement. Sagittal and coronal reconstructions were performed. Radiation dose: Total exam DLP = 410.16 mGy-cm. This CT exam was performed using one or more of the following dose reduction techniques: Automated exposure control, adjustment of the mA and/or kV according to patient size, and/or use of iterative reconstruction technique. FINDINGS: LUNGS: Extensive peripheral interstitial lung disease with honeycombing MEDIASTINUM: No suspicious mass seen. Unremarkable thoracic aorta. No aneurysm. Normal sized heart. Main pulmonary artery unremarkable. No vascular congestion. No lymphadenopathy. There is presence of aortic atherosclerotic calcification and mural plaque on cross sectional studies. Coronary artery calcifications also present. PLEURA: No pleural fluid. No pneumothorax. BONES: No fracture. No destructive lesion. Thoracic spondylosis. UPPER ABDOMEN: Possible small 8 mm left adrenal nodule-partially visualized. Large hiatal hernia. OTHER FINDINGS: None. IMPRESSION: Findings compatible with pulmonary fibrosis. Other findings as above.
[2018-12-27 17:28] LABS: CREATININE, RANDOM URINE 88.7 mg/dL
[2018-12-27] MEDS: Sodium Chloride 0.45% 1,000 ML IV SCH (17:40)
--- NOTE | 2018-12-27 23:45 | CARD ---
APPROVED REPORT Date of service: 12/27/2018 EXAM: Two-dimensional and M-mode echocardiogram with Doppler and color Doppler. Other Information Quality : FairRhythm : NSR INDICATION LV Function:SystolicDiastolic 2D DIMENSIONS IVSd1.12 (0.7-1.1cm)LVDd4.32 (3.9-5.9cm) LVOT Diameter2.21 (1.8-2.4cm)PWd1.11 (0.7-1.1cm) IVSs1.34 (0.8-1.2cm)LVDs3.33 (2.5-4.0cm) FS (%) 23.0 %PWs1.30 (0.8-1.2cm) Aortic Valve AoV Peak Bemwhbxt605.4cm/sAoV VTI18.4cmAO Peak GR.5mmHg LVOT Peak Jpgqyeep42.1cm/sLVOT VTI13.02cmAO Mean GR.3mmHg MARISEL (VMAX)1.14yj0RSQ (VTI)1.46cm2 Mitral Valve MV E Elczyauy67.0cm/sMV DECEL [id number] A Jwvxrcfu97.5cm/s MV NPF81hpH/A ratio0.5MVA (PHT)3.55cm2 TDI Lateral E' Peak V7.09cm/sMedial E' Peak V5.38cm/sE/Lateral E'5.6 E/Medial E'7.4 LEFT VENTRICLE The left ventricle is normal size. There is normal left ventricular wall thickness. The left ventricular systolic function is normal. The estimated ejection fraction is 55-60% No regional wall motion abnormalities noted.. Transmitral Doppler flow pattern is Grade I-abnormal relaxation pattern. No left ventricle thrombus noted on this study. There is no ventricular septal defect visualized. There is no left ventricular aneurysm. There is no mass noted in the left ventricle. RIGHT VENTRICLE The right ventricle is normal size. There is normal right ventricular wall thickness. The right ventricular systolic function is normal. ATRIA The left atrium size is normal. The right atrium size is normal. The interatrial septum is intact with no evidence for an atrial septal defect. AORTIC VALVE The aortic valve is normal in structure. No aortic regurgitation is present. There is no aortic valvular stenosis. There is no aortic valvular vegetation. MITRAL VALVE The mitral valve is normal in structure. There is no evidence of mitral valve prolapse. There is no mitral valve stenosis. There is no mitral valve regurgitation noted. TRICUSPID VALVE The tricuspid valve is normal in structure. There is mild tricuspid valve regurgitation noted. RVSP is calculated at less than 20 mm Hg. There is no tricuspid valve prolapse or vegetation. There is no tricuspid valve stenosis. PULMONIC VALVE The pulmonary valve is normal in structure. There is no pulmonic valvular regurgitation. There is no pulmonic valvular stenosis. GREAT VESSELS The aortic root is normal in size. The ascending aorta is normal in size. The pulmonary artery is normal. The IVC is normal in size and collapses >50% with inspiration. PERICARDIAL EFFUSION There is no pericardial effusion. There is no pleural effusion. <Conclusion> The estimated ejection fraction is 55-60% Transmitral Doppler flow pattern is Grade I-abnormal relaxation pattern. The left atrium size is normal. There is mild tricuspid valve regurgitation noted. RVSP is calculated at less than 20 mm Hg.
[2018-12-28] MEDS: Levalbuterol 0.63 MG/3 ML Inhal Soln UD INH SCH ×3 (01:38→13:51)
[2018-12-28] MEDS: Ipratropium 0.02% Inhal Soln (0.5 mg/2.5 ml) UD IH SCH ×3 (01:38→13:52)
[2018-12-28] MEDS: Sodium Chloride 0.45% 1,000 ML IV SCH (04:18)
[2018-12-28] MEDS: GlipiZIDE 10 mg SR Tab PO SCH ×2 (08:17→16:33)
[2018-12-28] MEDS: Pantoprazole 40 mg EC Tab PO SCH (08:18)
[2018-12-28] MEDS: Cilostazol 100 mg Tab UD PO SCH ×2 (08:18→20:17)
[2018-12-28 08:20] VITALS: RESP 20
--- NOTE | 2018-12-28 09:34 | CP.PCM.PN ---
Subjective - Date & Time of Evaluation Date of Evaluation: 12/28/18 Time of Evaluation: 09:33 - Subjective Subjective: Patient is up and around His mental status appears to be okay Vital signs stable No abdominal pain vomiting reported Objective - Vital Signs/Intake and Output Vital Signs (last 24 hours): Temp Pulse Resp BP Pulse Ox 97.3 F L 83 20 114/66 95 12/28/18 08:20 12/28/18 08:20 12/28/18 08:20 12/28/18 08:20 12/28/18 08:20 - Medications Medications: Current Medications Aspirin (Ecotrin) 81 mg PO DAILY [facility] Last Admin: 12/28/18 08:17 Dose: 81 mg Atorvastatin Calcium (Lipitor) 20 mg PO DAILY [facility] Last Admin: 12/28/18 08:18 Dose: 20 mg Cilostazol (Pletal) 100 mg PO Q12 [facility] Last Admin: 12/28/18 08:18 Dose: 100 mg Glipizide (Glucotrol Xl) 10 mg PO BID [facility] Last Admin: 12/28/18 08:17 Dose: 10 mg Sodium Chloride (Sodium Chloride 0.45%) 1,000 mls @ 70 mls/hr IV .[id number] [facility] Stop: 12/28/18 13:50 Last Admin: 12/28/18 04:18 Dose: Not Given Ipratropium Norvell (Atrovent) 0.5 mg IH RQ6 [facility] Last Admin: 12/28/18 07:19 Dose: 0.5 mg Levalbuterol HCl (Xopenex) 0.63 mg INH RQ6 [facility] Last Admin: 12/28/18 07:19 Dose: 0.63 mg Meclizine HCl (Antivert) 25 mg PO Q12 [facility] Last Admin: 12/28/18 08:17 Dose: 25 mg Pantoprazole Sodium (Protonix Ec Tab) 40 mg PO DAILY [facility] Last Admin: 12/28/18 08:18 Dose: 40 mg Pentoxifylline (Pentoxil) 400 mg PO TID [facility] Last Admin: 12/28/18 08:18 Dose: 400 mg Promethazine HCl/Codeine (Phenergan/Codeine Oral Syrup) 10 ml PO Q4 PRN PRN Reason: Cough Sitagliptin Phosphate (Januvia) 50 mg PO DAILY [facility] Last Admin: 12/28/18 08:18 Dose: 50 mg - Labs Labs: 12/27/18 06:45 12/27/18 06:45 PT 12.0 Seconds (9.8-13.1) 12/27/18 06:45 INR 1.1 12/27/18 06:45 APTT 31.7 Seconds (25.6-37.1) 12/27/18 06:45 - Constitutional Appears: No Acute Distress - Eye Exam Eye Exam: Conjunctival injection - ENT Exam ENT Exam: Mucous Membranes Moist - Respiratory Exam Respiratory Exam: NORMAL BREATHING PATTERN - GI/Abdominal Exam GI & Abdominal Exam: Soft, Normal Bowel Sounds - Extremities Exam Extremities Exam: absent: Calf Tenderness - Back Exam Back Exam: absent: CVA tenderness (L), CVA tenderness (R) - Neurological Exam Neurological Exam: Alert - Psychiatric Exam Psychiatric exam: Normal Affect - Skin Skin Exam: absent: Cyanosis Assessment and Plan (1) Altered mental status Status: Acute (2) History of endovascular stent graft for abdominal aortic aneurysm (AAA) Status: Acute (3) History of lacunar cerebrovascular accident (CVA) Status: Chronic (4) LUZ (acute kidney injury) Assessment & Plan: Rule out acute kidney injury superimposed perhaps on underlying chronic kidney disease stage II-III History of diabetes History of hypertension Patient was admitted with altered mental status. reCommendation Patient improving force fluid by mouth Repeat BMP Status: Acute
--- NOTE | 2018-12-28 11:45 | MRI ---
Date of service: 12/27/2018 PROCEDURE: MRI BRAIN WITHOUT CONTRAST HISTORY: Dx. AMS COMPARISON: None available. TECHNIQUE: Multiplanar, multisequence MR images of the brain were obtained without intravenous contrast enhancement. FINDINGS: HEMORRHAGE: None DWI: No evidence of an acute or early subacute infarction. BRAIN PARENCHYMA: Good corticomedullary differentiation is seen. Proportional, diffuse expansion of the ventriculosulcal and cisternal spaces is appreciated with white matter signal changes compatible with diffuse cerebral atrophy and chronic microangiopathy. No suspicious extra-axial fluid collection is identified and the midline brain anatomy appears grossly nonfocal as imaged. There is no mass effect throughout. Chronic lacune right thalamus reiterated. VENTRICLES: Unremarkable. No hydrocephalus. CRANIUM: Unremarkable. ORBITS: Grossly unremarkable. PARANASAL SINUSES/MASTOIDS: Clear VASCULAR SYSTEM: Skull base flow voids intact. OTHER FINDINGS: None. IMPRESSION: Age-appropriated neurogenerative changes. Chromnic lacune right thalamus. No acute findings.
[2018-12-28 12:02] LABS: HEMOGLOBIN 12.4 g/dL (12.0-18.0); MEAN CELL VOLUME 95.8 fl (80.0-94.0); MEAN CORPUSCULAR HEMOGLOBIN 31.7 pg (27.0-31.0); MEAN CORPUSCULAR HGB CONC 33.1 g/dL (33.0-37.0); RBC 3.93 Mil/uL (4.40-5.90); RED CELL DISTRIBUTION WIDTH 13.6 % (11.5-14.5); WHITE BLOOD COUNT 5.7 K/uL (4.8-10.8)
[2018-12-28 12:03] LABS: CALCIUM 8.8 mg/dL (8.4-10.2)
--- NOTE | 2018-12-28 13:48 | CP.PCM.PN ---
Objective - Vital Signs/Intake and Output Vital Signs (last 24 hours): Temp Pulse Resp BP Pulse Ox 97.3 F L 72 20 139/82 98 12/28/18 08:20 12/28/18 11:36 12/28/18 08:20 12/28/18 11:36 12/28/18 11:36 - Medications Medications: Current Medications Aspirin (Ecotrin) 81 mg PO DAILY [facility] Last Admin: 12/28/18 08:17 Dose: 81 mg Atorvastatin Calcium (Lipitor) 20 mg PO DAILY [facility] Last Admin: 12/28/18 08:18 Dose: 20 mg Cilostazol (Pletal) 100 mg PO Q12 [facility] Last Admin: 12/28/18 08:18 Dose: 100 mg Glipizide (Glucotrol Xl) 10 mg PO BID [facility] Last Admin: 12/28/18 08:17 Dose: 10 mg Heparin Sodium (Porcine) (Heparin) 5,000 units SC Q12 [facility]; Protocol Last Admin: 12/28/18 13:02 Dose: 5,000 units Sodium Chloride (Sodium Chloride 0.45%) 1,000 mls @ 70 mls/hr IV .[id number] [facility] Stop: 12/28/18 13:50 Last Admin: 12/28/18 04:18 Dose: Not Given Ipratropium Caroleen (Atrovent) 0.5 mg IH RQ6 [facility] Last Admin: 12/28/18 07:19 Dose: 0.5 mg Levalbuterol HCl (Xopenex) 0.63 mg INH RQ6 [facility] Last Admin: 12/28/18 07:19 Dose: 0.63 mg Meclizine HCl (Antivert) 25 mg PO Q12 [facility] Last Admin: 12/28/18 08:17 Dose: 25 mg Pantoprazole Sodium (Protonix Ec Tab) 40 mg PO DAILY [facility] Last Admin: 12/28/18 08:18 Dose: 40 mg Pentoxifylline (Pentoxil) 400 mg PO TID [facility] Last Admin: 12/28/18 12:59 Dose: 400 mg Promethazine HCl/Codeine (Phenergan/Codeine Oral Syrup) 10 ml PO Q4 PRN PRN Reason: Cough Sitagliptin Phosphate (Januvia) 50 mg PO DAILY [facility] Last Admin: 12/28/18 08:18 Dose: 50 mg - Labs Labs: 12/28/18 11:30 04/11/19 11:30 PT 12.0 Seconds (9.8-13.1) 12/27/18 06:45 INR 1.1 12/27/18 06:45 APTT 31.7 Seconds (25.6-37.1) 12/27/18 06:45 Assessment and Plan (1) Altered mental status Status: Acute (2) DMII (diabetes mellitus, type 2) Status: Chronic (3) CKD (chronic kidney disease), stage II Status: Chronic (4) HTN (hypertension) Status: Chronic (5) COPD (chronic obstructive pulmonary disease) Status: Chronic (6) History of endovascular stent graft for abdominal aortic aneurysm (AAA) Status: Acute (7) Anxiety Status: Chronic (8) History of lacunar cerebrovascular accident (CVA) Status: Chronic
--- NOTE | 2018-12-28 18:43 | CP.PCM.CON ---
History of Present Illness - History of Present Illness History of Present Illness: Neurology consult dictated. Mr. Almodovar is an 83 yr old male who was found to have altered mental status. He displays signs of dementia, with weakness that is most likely secondary to metabolic issues. Plan; 1. May be discharged home on aricept and physical therapy Thank you DR. tolliver Neurology Past Patient History - Past Medical History & Family History Past Medical History?: Yes - Past Social History Smoking Status: Heavy Smoker > 10 Cigarettes Daily - CARDIAC Hx Hypertension: Yes - PULMONARY Hx Respiratory Disorders: Yes - NEUROLOGICAL Hx Neurological Disorder: No - HEENT Hx HEENT Problems: No - RENAL Hx Chronic Kidney Disease: No - ENDOCRINE/METABOLIC Hx Endocrine Disorders: Yes Hx Diabetes Mellitus Type 2: Yes - HEMATOLOGICAL/ONCOLOGICAL Hx Blood Disorders: No - INTEGUMENTARY Hx Dermatological Problems: No - MUSCULOSKELETAL/RHEUMATOLOGICAL Hx Arthritis: Yes - GASTROINTESTINAL Hx Gastrointestinal Disorders: No - GENITOURINARY/GYNECOLOGICAL Hx Genitourinary Disorders: No - PSYCHIATRIC Hx Anxiety: Yes - SURGICAL HISTORY Hx Surgeries: Yes Other/Comment: RLE vascular surgery Fame-[employer] bypass. IVC filter. Skin Nose Ca - ANESTHESIA Hx Anesthesia: Yes Hx Anesthesia Reactions: No Hx Malignant Hyperthermia: No Has any member of the family had a problem w/ anesthesia?: No Meds Allergies/Adverse Reactions: Allergies Allergy/AdvReac Type Severity Reaction Status Date / Time No Known Allergies Allergy Verified 01/20/18 10:19 - Medications Medications: Current Medications Aspirin (Ecotrin) 81 mg PO DAILY [facility] Last Admin: 12/28/18 08:17 Dose: 81 mg Atorvastatin Calcium (Lipitor) 20 mg PO DAILY [facility] Last Admin: 12/28/18 08:18 Dose: 20 mg Cilostazol (Pletal) 100 mg PO Q12 [facility] Last Admin: 12/28/18 08:18 Dose: 100 mg Glipizide (Glucotrol Xl) 10 mg PO BID [facility] Last Admin: 12/28/18 16:33 Dose: 10 mg Heparin Sodium (Porcine) (Heparin) 5,000 units SC Q12 [facility]; Protocol Last Admin: 12/28/18 13:02 Dose: 5,000 units Ipratropium [place] (Atrovent) 0.5 mg IH RQ6 [facility] Last Admin: 12/28/18 13:52 Dose: 0.5 mg Levalbuterol HCl (Xopenex) 0.63 mg INH RQ6 [facility] Last Admin: 12/28/18 13:51 Dose: 0.63 mg Meclizine HCl (Antivert) 25 mg PO Q12 [facility] Last Admin: 12/28/18 08:17 Dose: 25 mg Pantoprazole Sodium (Protonix Ec Tab) 40 mg PO DAILY [facility] Last Admin: 12/28/18 08:18 Dose: 40 mg Pentoxifylline (Pentoxil) 400 mg PO TID [facility] Last Admin: 12/28/18 16:33 Dose: 400 mg Promethazine HCl/Codeine (Phenergan/Codeine Oral Syrup) 10 ml PO Q4 PRN PRN Reason: Cough Sitagliptin Phosphate (Januvia) 50 mg PO DAILY [facility] Last Admin: 12/28/18 08:18 Dose: 50 mg Results - Vital Signs Recent Vital Signs: Last Vital Signs Temp 97.5 F L 12/28/18 16:07 Pulse 86 12/28/18 16:07 Resp 20 12/28/18 16:07 BP 101/60 12/28/18 16:07 Pulse Ox 94 L 12/28/18 16:07 - Labs Result Diagrams: 12/28/18 11:30 12/28/18 11:30 Labs: Laboratory Results - last 24 hr 12/27/18 12/27/18 12/28/18 06:45 22:01 05:49 WBC RBC Hgb Hct MCV MCH MCHC RDW Plt Count Sodium Potassium Chloride Carbon Dioxide Anion Gap BUN Creatinine Est GFR ( Amer) Est GFR (Non-Af Amer) POC Glucose (mg/dL) 178 H 83 Random Glucose Calcium PTH Intact Whole [place] 61 12/28/18 12/28/18 12/28/18 10:56 11:30 11:30 WBC 5.7 RBC 3.93 L Hgb 12.4 Hct 37.6 MCV 95.8 H MCH 31.7 H MCHC 33.1 RDW 13.6 Plt Count 145 Sodium 137 Potassium 3.9 Chloride 103 Carbon Dioxide 27 Anion Gap 11 BUN 35 H Creatinine 1.5 Est GFR ( Amer) 54 Est GFR (Non-Af Amer) 44 POC Glucose (mg/dL) 176 H Random Glucose 158 H Calcium 8.8 PTH Intact Whole [place] 12/28/18 15:42 WBC RBC Hgb Hct MCV MCH MCHC RDW Plt Count Sodium Potassium Chloride Carbon Dioxide Anion Gap BUN Creatinine Est GFR ( Amer) Est GFR (Non-Af Amer) POC Glucose (mg/dL) 116 H Random Glucose Calcium PTH Intact Whole Molec
[2018-12-29] MEDS: Ipratropium 0.02% Inhal Soln (0.5 mg/2.5 ml) UD IH SCH ×2 (01:15→07:43)
[2018-12-29] MEDS: Levalbuterol 0.63 MG/3 ML Inhal Soln UD INH SCH ×2 (01:15→07:43)
[2018-12-29 08:34] VITALS: BP 145/79; PULSE 72; TEMP 97.3; O2SAT 98
[2018-12-29] MEDS: Pantoprazole 40 mg EC Tab PO SCH (08:50)
[2018-12-29] MEDS: GlipiZIDE 10 mg SR Tab PO SCH (08:52)
[2018-12-29] MEDS: Cilostazol 100 mg Tab UD PO SCH (08:55)
--- NOTE | 2018-12-29 12:32 | CP.PCM.PN ---
Subjective - Date & Time of Evaluation Date of Evaluation: 12/29/18 Time of Evaluation: 12:30 - Subjective Subjective: Patient awake and conscious feeling much better Vital signs stable Objective - Vital Signs/Intake and Output Vital Signs (last 24 hours): Temp Pulse Resp BP Pulse Ox 97.3 F L 72 20 145/79 98 12/29/18 08:34 12/29/18 08:34 12/29/18 08:34 12/29/18 08:34 12/29/18 08:34 - Medications Medications: Current Medications Aspirin (Ecotrin) 81 mg PO DAILY [facility] Last Admin: 12/29/18 08:51 Dose: 81 mg Atorvastatin Calcium (Lipitor) 20 mg PO DAILY [facility] Last Admin: 12/29/18 08:50 Dose: 20 mg Cilostazol (Pletal) 100 mg PO Q12 [facility] Last Admin: 12/29/18 08:55 Dose: 100 mg Glipizide (Glucotrol Xl) 10 mg PO BID [facility] Last Admin: 12/29/18 08:52 Dose: 10 mg Heparin Sodium (Porcine) (Heparin) 5,000 units SC Q12 [facility]; Protocol Last Admin: 12/29/18 08:53 Dose: 5,000 units Ipratropium [employer] (Atrovent) 0.5 mg IH RQ6 [facility] Last Admin: 12/29/18 07:43 Dose: 0.5 mg Levalbuterol HCl (Xopenex) 0.63 mg INH RQ6 [facility] Last Admin: 12/29/18 07:43 Dose: 0.63 mg Meclizine HCl (Antivert) 25 mg PO Q12 [facility] Last Admin: 12/29/18 08:50 Dose: Not Given Pantoprazole Sodium (Protonix Ec Tab) 40 mg PO DAILY [facility] Last Admin: 12/29/18 08:50 Dose: 40 mg Pentoxifylline (Pentoxil) 400 mg PO TID [facility] Last Admin: 12/29/18 08:55 Dose: 400 mg Promethazine HCl/Codeine (Phenergan/Codeine Oral Syrup) 10 ml PO Q4 PRN PRN Reason: Cough Sitagliptin Phosphate (Januvia) 50 mg PO DAILY [facility] Last Admin: 12/29/18 08:53 Dose: 50 mg - Labs Labs: 12/28/18 11:30 12/28/18 11:30 PT 12.0 Seconds (9.8-13.1) 12/27/18 06:45 INR 1.1 12/27/18 06:45 APTT 31.7 Seconds (25.6-37.1) 12/27/18 06:45 - Constitutional Appears: No Acute Distress - Eye Exam Eye Exam: Conjunctival injection - ENT Exam ENT Exam: Mucous Membranes Moist - Neck Exam Neck Exam: absent: Lymphadenopathy - Respiratory Exam Respiratory Exam: NORMAL BREATHING PATTERN. absent: Chest Wall Tenderness - Cardiovascular Exam Cardiovascular Exam: absent: Gallop, JVD, Rubs - GI/Abdominal Exam GI & Abdominal Exam: Soft, Normal Bowel Sounds - Extremities Exam Extremities Exam: absent: Calf Tenderness - Back Exam Back Exam: absent: CVA tenderness (L), CVA tenderness (R) - Neurological Exam Neurological Exam: Alert - Skin Skin Exam: absent: Cyanosis Assessment and Plan (1) Altered mental status Status: Acute (2) History of endovascular stent graft for abdominal aortic aneurysm (AAA) Status: Acute (3) History of lacunar cerebrovascular accident (CVA) Status: Chronic (4) LUZ (acute kidney injury) Assessment & Plan: Rule out acute kidney injury superimposed perhaps on underlying chronic kidney disease stage II-III History of diabetes History of hypertension Patient was admitted with altered mental status. reCommendation Patient improving force fluid by mouth Repeat BMP Status: Acute
--- NOTE | 2018-12-29 13:19 | CP.PCM.DIS ---
Provider - Provider Date of Admission: 12/26/18 16:37 Attending physician: Kulwant Sullivan MD Consults: 12/26/18 16:38 Neurology Consult Stat Comment: Consulting Provider: Mindy Maher Consulting Physician: Mindy Maher Reason for Consult: AMS/slurred speech 2 days 12/26/18 20:36 Nephrology Consult Routine Comment: Elevated BUN/Crea Consulting Provider: Abdiel Ngo Consulting Physician: Abdiel Ngo Reason for Consult: Elevated BUN/Crea Diagnosis - Discharge Diagnosis (1) Altered mental status Status: Acute Priority: High (2) DMII (diabetes mellitus, type 2) Status: Chronic Priority: High (3) CKD (chronic kidney disease), stage II Status: Chronic Priority: High (4) HTN (hypertension) Status: Chronic Priority: Low (5) COPD (chronic obstructive pulmonary disease) Status: Chronic Priority: Medium (6) History of endovascular stent graft for abdominal aortic aneurysm (AAA) Status: Acute Priority: Medium (7) Anxiety Status: Chronic Priority: High (8) History of lacunar cerebrovascular accident (CVA) Status: Chronic Priority: Medium Hospital Course - Lab Results Lab Results: Micro Results 12/27/18 08:51 Urine Random Urine Culture - Final Gram Negative [place] 12/26/18 16:30 Blood-Venous Blood Culture - Preliminary NO GROWTH AFTER 48 HOURS 12/26/18 15:00 Blood-Venous Blood Culture - Preliminary NO GROWTH AFTER 48 HOURS Most Recent Lab Values WBC 5.7 K/uL (4.8-10.8) 12/28/18 11:30 RBC 3.93 Mil/uL (4.40-5.90) L 12/28/18 11:30 Hgb 12.4 g/dL (12.0-18.0) 12/28/18 11:30 Hct 37.6 % (35.0-51.0) 12/28/18 11:30 MCV 95.8 fl (80.0-94.0) H 12/28/18 11:30 MCH 31.7 pg (27.0-31.0) H 12/28/18 11:30 MCHC 33.1 g/dL (33.0-37.0) 12/28/18 11:30 RDW 13.6 % (11.5-14.5) 12/28/18 11:30 Plt Count 145 K/uL (130-400) 12/28/18 11:30 MPV 8.5 fl (7.2-11.7) 12/26/18 15:30 Neut % (Auto) 72.1 % (50.0-75.0) 12/26/18 15:30 Lymph % (Auto) 15.7 % (20.0-40.0) L 12/26/18 15:30 [place] % (Auto) 10.4 % (0.0-10.0) H 12/26/18 15:30 Eos % (Auto) 1.5 % (0.0-4.0) 12/26/18 15:30 Baso % (Auto) 0.3 % (0.0-2.0) 12/26/18 15:30 Neut # (Auto) 4.1 K/uL (1.8-7.0) 12/26/18 15:30 Lymph # (Auto) 0.9 K/uL (1.0-4.3) L 12/26/18 15:30 [place] # (Auto) 0.6 K/uL (0.0-0.8) 12/26/18 15:30 Eos # (Auto) 0.1 K/uL (0.0-0.7) 12/26/18 15:30 Baso # (Auto) 0.0 K/uL (0.0-0.2) 12/26/18 15:30 PT 12.0 Seconds (9.8-13.1) 12/27/18 06:45 INR 1.1 12/27/18 06:45 APTT 31.7 Seconds (25.6-37.1) 12/27/18 06:45 pO2 27 mm/Hg (30-55) L 12/26/18 15:21 VBG pH 7.34 (7.32-7.43) 12/26/18 15:21 VBG pCO2 46 mmHg (40-60) 12/26/18 15:21 VBG HCO3 22.5 mmol/L 12/26/18 15:21 VBG Total CO2 26.2 mmol/L (22-28) 12/26/18 15:21 VBG O2 Sat (Calc) 51.4 % (40-65) 12/26/18 15:21 VBG Base Excess -1.3 mmol/L (0.0-2.0) L 12/26/18 15:21 VBG Potassium 3.9 mmol/L (3.6-5.2) 12/26/18 15:21 Sodium 136.0 mmol/L (132-148) 12/26/18 15:21 Chloride 105.0 mmol/L (98-107) 12/26/18 15:21 Glucose 153 mg/dL (75-110) H 12/26/18 15:21 Lactate 1.8 mmol/L (0.7-2.1) 12/26/18 15:21 FiO2 21.0 % 12/26/18 15:21 Sodium 137 mmol/l (132-148) 12/28/18 11:30 Potassium 3.9 MMOL/L (3.6-5.0) 12/28/18 11:30 Chloride 103 mmol/L (98-107) 12/28/18 11:30 Carbon Dioxide 27 mmol/L (22-30) 12/28/18 11:30 Anion Gap 11 (10-20) 12/28/18 11:30 BUN 35 mg/dl (9-20) H 12/28/18 11:30 Creatinine 1.5 mg/dl (0.8-1.5) 12/28/18 11:30 Est GFR ( Amer) 54 12/28/18 11:30 Est GFR (Non-Af Amer) 44 12/28/18 11:30 POC Glucose (mg/dL) 177 mg/dL (65-110) H 12/29/18 10:56 Random Glucose 158 mg/dL (75-110) H 12/28/18 11:30 Hemoglobin A1c 6.8 % (4.2-6.5) H 12/27/18 06:45 Calcium 8.8 mg/dL (8.4-10.2) 12/28/18 11:30 Phosphorus 3.9 mg/dl (2.5-4.5) 12/27/18 09:01 Total Bilirubin 0.6 mg/dl (0.2-1.3) 12/27/18 06:45 AST 32 U/L (17-59) 12/27/18 06:45 ALT 27 U/L (21-72) 12/27/18 06:45 Alkaline Phosphatase 58 U/L (38-126) 12/27/18 06:45 Troponin I 0.0210 ng/mL (0.00-0.120) 12/26/18 15:30 NT-Pro-B Natriuret Pep 382 pg/ml (0-900) 12/26/18 15:30 Total Protein 6.7 G/DL (6.3-8.2) 12/27/18 06:45 Albumin 3.7 g/dL (3.5-5.0) 12/27/18 06:45 Globulin 3.0 gm/dL (2.2-3.9) 12/27/18 06:45 Albumin/Globulin Ratio 1.2 (1.0-2.1) 12/27/18 06:45 Triglycerides 158 mg/DL (0-149) H 12/27/18 06:45 Cholesterol 134 mg/dL (0-199) 12/27/18 06:45 LDL Cholesterol Direct 64 mg/dL (0-129) 12/27/18 06:45 HDL Cholesterol 38 MG/DL (30-70) 12/27/18 06:45 Lipase 14 U/L (23-300) L 12/26/18 15:30 Thyroxine (T4) 6.39 ug/dl (5.5-11.0) 12/27/18 06:45 TSH 3rd Generation 1.09 mIU/ML (0.46-4.68) 12/27/18 06:45 PTH Intact Whole Molec 61 pg/mL (14-64) 12/27/18 06:45 Venous Blood Potassium 3.9 mmol/L (3.6-5.2) 12/26/18 15:21 Urine Color Yellow (YELLOW) 12/26/18 15:41 Urine Clarity Slighty-cloudy (Clear) 12/26/18 15:41 Urine pH 5.0 (5.0-8.0) 12/26/18 15:41 Ur Specific [place] 1.018 (1.003-1.030) 12/26/18 15:41 Urine Protein 30 mg/dL (NEGATIVE) 12/26/18 15:41 Urine Glucose (UA) Neg mg/dL (NEGATIVE) 12/26/18 15:41 Urine Ketones Negative mg/dL (NEGATIVE) 12/26/18 15:41 Urine Blood Small (NEGATIVE) 12/26/18 15:41 Urine Nitrate Negative (NEGATIVE) 12/26/18 15:41 Urine Bilirubin Negative (NEGATIVE) 12/26/18 15:41 Urine Urobilinogen 0.2-1.0 mg/dL (0.2-1.0) 12/26/18 15:41 Ur Leukocyte Esterase Neg Nick/uL (Negative) 12/26/18 15:41 Urine RBC (Auto) 7 /hpf (0-3) H 12/26/18 15:41 Urine Microscopic WBC 1 /hpf (0-5) 12/26/18 15:41 Ur Squamous Epith Cells 1 /hpf (0-5) 12/26/18 15:41 Hyaline Casts 3-5 /hpf (0-2) H 12/26/18 15:41 Ur Random Creatinine 88.7 mg/dL 12/27/18 16:45 U Random Total Protein 39.0 mg/dL (0.0-12.0) H 12/27/18 16:45 Influenza Typ A,B (EIA) Negative for flu a/b (NEGATIVE) 12/26/18 15:41 Discharge Exam - Head Exam Head Exam: NORMAL INSPECTION Discharge Plan - Follow Up Plan Condition: STABLE Disposition: HOME/ ROUTINE Instructions: Altered Mental Status Referrals: Kulwant Sullivan MD [Staff Provider] -
--- NOTE | 2019-01-01 16:43 | PQF ---
PROVIDER RESPONSE TEXT: Dementia with metabolic encephalopathy REVIEWER QUERY TEXT: Altered Mental Status - Underlying Cause Physician?s Documentation Request This Form is Not a Permanent Document in the Medical Record Pt Name: JONATHAN YOUSSEF MR #: [id number] Payor: MEDICARE HMO [id number] Adm Date: 12/26/2018 4:37:00 PM Reviewer: Daria Hong Ext. Query Date: 12/29/2018 4:13:30 PM Altered Mental Status - Underlying Cause [id number] By submitting this query, we are merely seeking further clarification of documentation to accurately reflect all conditions that you are monitoring, evaluating, treating or that extend the hospitalizati on or utilize additional resources of care. Please utilize your independent clinical judgment when ad dressing the question(s) below. Dear Doctor Kulwant Sullivan, The patient?s Clinical Indicators include: XX A mental status change is documented in the Medical Record. Please specify the underlying cause Such as: -- Due to medication -- Cardiac condition -- Electrolyte/metabolic imbalance -- Infectious process -- Neurologic condition -- Psychiatric condition -- Respiratory condition -- Other, please specify PLEASE DOCUMENT ANY ADDITIONAL DIAGNOSES AND/OR SPECIFICITY IN THE PROGRESS NOTES AND/OR DISCHARGE LUO MMARY. Clinically unable to determine/unknown Disagree with the above request Need to discuss Query created by: Daria Hong on 12/29/2018 4:13 PM Electronically signed by: Kulwant Sullivan MD 01/01/2019 4:40 PM
== END 2018-12-29 14:14 | disposition home or self-care (01) | DRG 884 ==
LOC: H.ER 14:16 → H.ERHOLD 16:37 → H.MEDSURG1 18:50
PROVIDERS: ADMIT Internal Medicine Pulmonary Disease; ATTEND Internal Medicine Pulmonary Disease
DX: F03.90 Unspecified dementia, unspecified severity, without behavioral disturbance, psychotic disturbance, mood disturbance, and anxiety (principal); G93.41 Metabolic encephalopathy; N17.9 Acute kidney failure, unspecified; N18.2 Chronic kidney disease, stage 2 (mild); E11.22 Type 2 diabetes mellitus with diabetic chronic kidney disease; I12.9 Hypertensive chronic kidney disease with stage 1 through stage 4 chronic kidney disease, or unspecified chronic kidney disease; F17.210 Nicotine dependence, cigarettes, uncomplicated; Z86.718 Personal history of other venous thrombosis and embolism; Z86.73 Personal history of transient ischemic attack (TIA), and cerebral infarction without residual deficits; J84.10 Pulmonary fibrosis, unspecified; J44.9 Chronic obstructive pulmonary disease, unspecified; F41.9 Anxiety disorder, unspecified; E78.00 Pure hypercholesterolemia, unspecified; M19.90 Unspecified osteoarthritis, unspecified site; Z79.82 Long term (current) use of aspirin